=== PATIENT | male | born 1935 | race Caucasian/White ===

== ENCOUNTER → 2016-06-11 | Outpatient (CLI) | payer MEDICARE, OTHER | LOC: RAD 08:42 | PROVIDERS: ATTEND Internal Medicine Medical Oncology | DX: C61 Malignant neoplasm of prostate (principal) | CPT/HCPCS: 78306; A9503; Q9969 ==

== ENCOUNTER → 2016-06-14 | Outpatient (CLI) | payer MEDICARE, OTHER | LOC: RAD 10:06 | PROVIDERS: ATTEND Internal Medicine Medical Oncology | DX: C61 Malignant neoplasm of prostate (principal) | CPT/HCPCS: 72193; 82565 ==

== ENCOUNTER → 2016-07-03 | Outpatient (CLI) | payer MEDICARE, OTHER ==
[2016-07-03 08:25] LABS: ABSOLUTE BASOPHILS # (AUTO) 0.1 10^3/uL (0.0-0.2); ABSOLUTE EOSINOPHILS # (AUTO) 0.1 10^3/uL (0.0-0.6); ABSOLUTE LYMPHOCYTES (AUTO) 0.6 10^3/uL (0.5-4.7); ABSOLUTE MONOCYTES (AUTO) 0.6 10^3/uL (0.1-1.4); ABSOLUTE NEUT (AUTO) 3.6 10^3/uL (1.7-8.2); BASOPHILS % (AUTO) 1.1 % (0-2); EOSINOPHILS % (AUTO) 1.4 % (0-6); HEMATOCRIT 36.5 % (37.9-51.0); HEMOGLOBIN 11.9 g/dL (13.5-17.0); HGB HCT DIFFERENCE -0.8; LYMPHOCYTES % (AUTO) 11.4 % (13-45); MEAN CORPUSCULAR HEMOGLOBIN 30.4 pg (27.0-33.4); MEAN CORPUSCULAR HGB CONC 32.6 g/dL (32.0-36.0); MEAN CORPUSCULAR VOLUME 93 fl (80-97); MONOCYTES % (AUTO) 12.8 % (3-13); RED CELL DISTRIBUTION WIDTH 14.5 % (11.5-14.0); SEGMENTED NEUTROPHILS % (AUTO) 73.3 % (42-78); WHITE BLOOD COUNT 4.9 10^3/uL (4.0-10.5)
[2016-07-03 08:52] LABS: ALANINE AMINOTRANSFERASE 27 U/L (21-72); ALBUMIN 3.2 g/dL (3.5-5.0); ALKALINE PHOSPHATASE 259 U/L (38-126); ANION GAP 9 (5-19); ASPARTATE AMINO TRANSFERASE 25 U/L (17-59); BILIRUBIN,TOTAL 0.8 mg/dL (0.2-1.3); BLOOD UREA NITROGEN 12 mg/dL (7-20); CALCIUM 8.2 mg/dL (8.4-10.2); CARBON DIOXIDE 25 mmol/L (22-30); CHLORIDE 101 mmol/L (98-107); CHOLESTEROL 166.75 mg/dL (0-200); CREATININE RESULT 1.21 mg/dL (0.52-1.25); Direct HDL 63 mg/dL (>40); GLUCOSE 101 mg/dL (75-110); POTASSIUM 4.7 mmol/L (3.6-5.0); SODIUM 135.2 mmol/L (137-145); TRIGLYCERIDES 162 mg/dL (<150)
[2016-07-03 09:03] LABS: DIRECT LDL 69 mg/dL (<100)
[2016-07-03 09:07] LABS: VLDL CHOLESTEROL 32.4 mg/dL (10-31)
== END ==
LOC: OD 07:42
PROVIDERS: ATTEND Internal Medicine
DX: R53.83 Other fatigue (principal); N18.9 Chronic kidney disease, unspecified; E78.5 Hyperlipidemia, unspecified; M10.9 Gout, unspecified; I25.10 Atherosclerotic heart disease of native coronary artery without angina pectoris
CPT/HCPCS: 36415; 80053; 80061; 84443; 84550; 85025

== ENCOUNTER 2016-07-16 01:10 | Emergency (ER) | payer MEDICARE, OTHER ==
[2016-07-16] MEDS ORDERED: NORMAL SALINE 1000 ML 1,000 ML IV ONE (01:36)
[2016-07-16] MEDS ORDERED: ONDANSETRON HCL INJ/PF 4 MG/2 ML SDV IV ONE (01:36)
--- NOTE | 2016-07-16 01:38 | ER Document Report ---
ED General - General Chief Complaint: General Weakness Stated Complaint: WEAKNESS Time seen by provider: 01:30 Notes: Patient is an 80-year-old male with a history of prostate cancer with bony metastasis that comes emergency department for chief complaint of weakness, nausea, vomiting, diarrhea. He denies any fever, headache, shortness of breath , chest pain, he denies any specific abdominal pain. Patient states that one week ago he was started on a new oral chemotherapy since that time he has had no appetite and increased vomiting and diarrhea. Patient also states that he was started on ampicillin for urinary tract infection almost 1 week ago. Patient denies any other significant medical history including diabetes, heart disease. TRAVEL OUTSIDE OF THE [place] IN LAST 30 DAYS: No - Related Data Allergies/Adverse Reactions: metformin Allergy (Verified 07/16/16 01:12) Diarrhea Past Medical History - General Information source: Patient, Relative - Social History Smoking Status: Former Smoker Frequency of alcohol use: None Drug Abuse: None Lives with: Family Family History: Reviewed & Not Pertinent Patient has suicidal ideation: No Patient has homicidal ideation: No - Past Medical History Cardiac Medical History: Reports: Hx Hypertension Denies: Hx Atrial Fibrillation, Hx Congestive Heart Failure, Hx Coronary Artery Disease, Hx Heart Attack - hx of chest pain x1, 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 Sterling, Hx Hypercholesterolemia, Hx Peripheral Vascular Disease, Hx Pulmonary Embolism, Hx Heart Murmur Pulmonary Medical History: Reports: Hx Asthma, Hx COPD Denies: Hx Bronchitis, Hx Pneumonia, Hx Respiratory Failure, Hx Sleep Apnea, Hx Tuberculosis Neurological Medical History: Denies: Hx Cerebrovascular Accident, Hx Seizures Endocrine Medical History: Denies: Hx Graves' Disease, Hx Hyperthyroidism, Hx Hypothyroidism Renal/ Medical History: Denies: Hx Benign Prostatic Hyperplasia - hx Prostate cancer, Hx End Stage Renal Disease, Hx Kidney Stones, Hx Peritoneal Dialysis Malignancy Medical History: Denies Hx Lung Cancer, Reports Hx Prostate Cancer GI Medical History: Reports: Hx Gastroesophageal Reflux Disease. Denies: Hx Crohn's Disease, Hx Hepatitis, Hx Hiatal Hernia, Hx Irritable Bowel, Hx Liver Failure, Hx Ulcer Musculoskeltal Medical History: Reports Hx Arthritis, Denies Hx Fibromyalgia, Denies Hx Muscular Dystrophy Psychiatric Medical History: Traumatic Medical History: Reports: Hx Fractures - presently pelvic fracture Infectious Medical History: Denies: Hx Hepatitis Past Surgical History: Reports: Hx Cholecystectomy, Hx Orthopedic Surgery. Denies: Hx Appendectomy, Hx Bowel Surgery, Hx Colostomy, Hx Coronary Artery Bypass Graft, Hx Gastric Bypass Surgery, Hx Herniorrhaphy, Hx Open Heart Surgery , Hx Pacemaker, Hx Tonsillectomy - Immunizations Hx Diphtheria, Pertussis, Tetanus Vaccination: Yes Review of Systems - Review of Systems Constitutional: See HPI EENT: No symptoms reported Cardiovascular: No symptoms reported Respiratory: No symptoms reported Gastrointestinal: See HPI Genitourinary: See HPI Male Genitourinary: No symptoms reported Musculoskeletal: No symptoms reported Skin: No symptoms reported Hematologic/Lymphatic: No symptoms reported Neurological/Psychological: No symptoms reported Physical Exam - Vital signs Vitals: Pulse Resp BP Pulse Ox 81 16 112/55 L 97 07/16/16 01:17 07/16/16 01:17 07/16/16 01:17 07/16/16 01:17 Interpretation: Normal - General General appearance: Other - Patient resting quietly on the bed, appears slightly tired but does not appear to be in any distress, alert and answers questions appropriately - HEENT Head: Normocephalic, Atraumatic Eyes: Normal Pupils: PERRL - Respiratory Respiratory status: No respiratory distress Chest status: Nontender Breath sounds: Normal. No: Decreased air movement, Wheezing Chest palpation: Normal - Cardiovascular Rhythm: Regular. No: Tachycardia Heart sounds: Normal auscultation, S1 appreciated, S2 appreciated Murmur: No - Abdominal Inspection: Normal Distension: No distension Bowel sounds: Normal Tenderness: Nontender. No: Tender, Guarding Organomegaly: No organomegaly - Back Back: Normal, Nontender. No: Tender - Extremities General upper extremity: Normal inspection, Nontender, Normal color, Normal ROM , Normal temperature General lower extremity: Normal inspection, Nontender, Normal color, Normal ROM , Normal temperature, Normal weight bearing. No: Jesus Alberto's sign - Neurological Neuro grossly intact: Yes Cognition: Normal Orientation: AAOx4 [place] Coma Scale Eye Opening: Spontaneous [place] Coma Scale Verbal: Oriented [place] Coma Scale Motor: Obeys Commands [place] Coma Scale Total: 15 Speech: Normal Motor strength normal: LUE, RUE, LLE, RLE Sensory: Normal - Psychological Associated symptoms: Normal affect, Normal mood - Skin Skin Temperature: Warm Skin Moisture: Dry Skin Color: Normal Course - Re-evaluation Re-evalutation: Unremarkable physical exam, patient not tachycardic, not febrile, not hypotensive. After Zofran patient tolerated PO without difficulty. Mild hyponatremia, patient given IV fluids, patient is not neutropenic, patient is on oral chemotherapy. Chemistry and CBC generally unremarkable otherwise. Urinalysis shows moderate leukocyte esterase and white blood cells, no nitrites , no bacteria, suspect this could be patient's baseline urinalysis, reviewed culture from a few days ago and this shows susceptibility to ampicillin, patient given a dose of Rocephin. Discussed patient with Dr. Sinclair, agrees with IV fluids and Rocephin, recommends patient be discharged with Zofran to call his oncologist today to report the difficulties he is having with his current chemotherapy regimen, with return precautions for patient to return to the emergency department. Patient states satisfaction with plan, states he is ready to leave, family members state agreement, patient states he'll return for fever, uncontrolled vomiting, or any other concerning symptoms. New urine culture pending. - Vital Signs Vital signs: Temp Pulse Resp BP Pulse Ox 98.4 F 81 21 H 130/75 H 94 07/16/16 04:32 07/16/16 01:17 07/16/16 04:01 07/16/16 04:00 07/16/16 04:01 - Laboratory Result Diagrams: 07/16/16 02:05 07/16/16 02:05 Laboratory results interpreted by me: 07/16/16 07/16/16 07/16/16 02:05 02:05 02:28 RBC 3.83 L Hgb 11.7 L Hct 35.3 L RDW 14.2 H Monocytes % 13.4 H Sodium 136.8 L Glucose 111 H Calcium 7.5 L Alkaline Phosphatase 266 H Total Protein 5.4 L Albumin 3.3 L Urine Protein 100 H Ur Leukocyte Esterase MODERATE H Discharge - Discharge Clinical Impression: Weakness Nausea & vomiting Qualifiers: Vomiting type: unspecified Vomiting Intractability: non-intractable Qualified Code(s): R11.2 - Nausea with vomiting, unspecified Condition: Stable Disposition: HOME, SELF-CARE Additional Instructions: Take Zofran as prescribed for nausea/vomiting. Call your oncologist today to discuss side effects of new chemotherapy and additional management. Return to the emergency department for any concerning or worsening symptoms including uncontrollable vomiting, fever, or any other concerning symptoms. Prescriptions: Ondansetron [Zofran Odt 4 mg Tablet] 1 - 2 tab PO Q4H PRN #20 tab.rapdis PRN Reason: For Nausea/Vomiting Referrals: TOMASA THIBODEAUX MD [Primary Care Provider] - Follow up as needed
[2016-07-16 02:29] LABS: ABSOLUTE BASOPHILS # (AUTO) 0.1 10^3/uL (0.0-0.2); ABSOLUTE EOSINOPHILS # (AUTO) 0.1 10^3/uL (0.0-0.6); ABSOLUTE LYMPHOCYTES (AUTO) 0.9 10^3/uL (0.5-4.7); ABSOLUTE MONOCYTES (AUTO) 0.7 10^3/uL (0.1-1.4); ABSOLUTE NEUT (AUTO) 3.3 10^3/uL (1.7-8.2); BASOPHILS % (AUTO) 1.2 % (0-2); EOSINOPHILS % (AUTO) 2.2 % (0-6); HEMATOCRIT 35.3 % (37.9-51.0); HEMOGLOBIN 11.7 g/dL (13.5-17.0); HGB HCT DIFFERENCE -0.2; LYMPHOCYTES % (AUTO) 17.7 % (13-45); MEAN CORPUSCULAR HEMOGLOBIN 30.5 pg (27.0-33.4); MEAN CORPUSCULAR HGB CONC 33.1 g/dL (32.0-36.0); MEAN CORPUSCULAR VOLUME 92 fl (80-97); MONOCYTES % (AUTO) 13.4 % (3-13); RED BLOOD COUNT 3.83 10^6/uL (4.35-5.55); RED CELL DISTRIBUTION WIDTH 14.2 % (11.5-14.0); SEGMENTED NEUTROPHILS % (AUTO) 65.5 % (42-78)
[2016-07-16 02:39] LABS: ALANINE AMINOTRANSFERASE 28 U/L (21-72); ALBUMIN 3.3 g/dL (3.5-5.0); ALKALINE PHOSPHATASE 266 U/L (38-126); ANION GAP 12 (5-19); ASPARTATE AMINO TRANSFERASE 30 U/L (17-59); BILIRUBIN,TOTAL 0.5 mg/dL (0.2-1.3); BLOOD UREA NITROGEN 9 mg/dL (7-20); CALCIUM 7.5 mg/dL (8.4-10.2); CARBON DIOXIDE 23 mmol/L (22-30); CHLORIDE 102 mmol/L (98-107); CREATININE RESULT 1.05 mg/dL (0.52-1.25); GLUCOSE 111 mg/dL (75-110); POTASSIUM 3.8 mmol/L (3.6-5.0); SODIUM 136.8 mmol/L (137-145); TOTAL PROTEIN 5.4 g/dL (6.3-8.2)
[2016-07-16 02:55] LABS: APPEARANCE,URINE SLIGHTLY-CLOUDY; BILIRUBIN,URINE NEGATIVE (NEGATIVE); GLUCOSE, URINE NEGATIVE (NEGATIVE); KETONES,URINE NEGATIVE (NEGATIVE); LEUKOCYTE ESTERASE,URINE MODERATE (NEGATIVE); NITRITE,URINE NEGATIVE (NEGATIVE); PROTEIN,URINE 100 mg/dL (NEGATIVE); URINE SPECIFIC GRAVITY 1.012; UROBILINOGEN,URINE NEGATIVE mg/dL (<2.0)
[2016-07-16] MEDS ORDERED: CEFTRIAXONE 1 GM/D5W RTU 50 ML IV ONE (02:58)
[2016-07-16] MEDS ORDERED: ONDANSETRON ODT 4 MG TAB (6 TAB/DSPK) PO PRN (04:03)
[2016-07-16 04:32] VITALS: BP 130/75
== END 2016-07-16 04:54 | disposition home or self-care (01) ==
LOC: ER 01:10
DX: R53.1 Weakness (principal); R11.2 Nausea with vomiting, unspecified; R19.7 Diarrhea, unspecified; Z87.891 Personal history of nicotine dependence
CPT/HCPCS: 99284; 96361; 96375; 96365; 36415; 87086; 85025; 87088; 80053; 81001; 87186; J2405; J7030; J0696; A9270

== ENCOUNTER → 2016-09-17 | Outpatient (CLI) | payer MEDICARE, OTHER ==
[2016-09-17 12:12] LABS: HEMATOCRIT 31.7 % (37.9-51.0); HEMOGLOBIN 10.6 g/dL (13.5-17.0); HGB HCT DIFFERENCE 0.1; MEAN CORPUSCULAR HEMOGLOBIN 29.8 pg (27.0-33.4); MEAN CORPUSCULAR HGB CONC 33.3 g/dL (32.0-36.0); MEAN CORPUSCULAR VOLUME 90 fl (80-97); RED BLOOD COUNT 3.54 10^6/uL (4.35-5.55); RED CELL DISTRIBUTION WIDTH 14.5 % (11.5-14.0); WHITE BLOOD COUNT 5.5 10^3/uL (4.0-10.5)
[2016-09-17 12:23] LABS: APPEARANCE,URINE CLEAR; BILIRUBIN,URINE NEGATIVE (NEGATIVE); GLUCOSE, URINE NEGATIVE (NEGATIVE); KETONES,URINE NEGATIVE (NEGATIVE); LEUKOCYTE ESTERASE,URINE MODERATE (NEGATIVE); NITRITE,URINE NEGATIVE (NEGATIVE); PROTEIN,URINE NEGATIVE (NEGATIVE); URINE SPECIFIC GRAVITY 1.006; UROBILINOGEN,URINE NEGATIVE mg/dL (<2.0)
[2016-09-17 12:37] LABS: ANION GAP 13 (5-19); BLOOD UREA NITROGEN 22 mg/dL (7-20); CALCIUM 9.2 mg/dL (8.4-10.2); CARBON DIOXIDE 23 mmol/L (22-30); CHLORIDE 105 mmol/L (98-107); CREATININE RESULT 0.99 mg/dL (0.52-1.25); GLUCOSE 115 mg/dL (75-110); POTASSIUM 5.1 mmol/L (3.6-5.0); SODIUM 141.2 mmol/L (137-145)
== END ==
LOC: OD 10:58
PROVIDERS: ATTEND Internal Medicine Nephrology
DX: I12.9 Hypertensive chronic kidney disease with stage 1 through stage 4 chronic kidney disease, or unspecified chronic kidney disease (principal); N18.2 Chronic kidney disease, stage 2 (mild); M10.00 Idiopathic gout, unspecified site
CPT/HCPCS: 36415; 80048; 81001; 85027

== ENCOUNTER 2016-09-28 10:49 | Emergency (ER) | payer MEDICARE, OTHER ==
--- NOTE | 2016-09-28 11:43 | ER Document Report ---
ED Neck/Back Problem - General Chief Complaint: Back Pain Stated Complaint: BACK PAIN Time Seen by Provider: 09/28/16 11:25 Notes: Patient complaining of pain in the lumbar back region which came on suddenly about 1 AM this morning. Patient says is very severe and hurts to move or stand up. Patient has a history of prostate cancer, discovered in 1996 and had a radical prostatectomy. 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 The cancer returned in 2014 in his pelvis and he had radiation treatments for 10 days. The cancer returned this past June, as "tumors" in his lower back, 3 months ago, and is currently being treated with an oral chemotherapy agent. Patient says the pain is present if he moves, stands up,, but is stable if he doesn't move. He's applied ice and took a couple of hydrocodone's about 1 AM and again at 6 AM and says that that has controlled the pain. He denies any abdominal pains, no chest pains. No anterior body pain at all. No history of kidney stones or kidney infections. Denies shortness of breath or difficulty breathing. Has not had any fevers. PMH: Cholecystectomy. Colon perforation during colonoscopy requiring surgery, right total hip replacement area hypertension. Gout. TRAVEL OUTSIDE OF THE [place] IN LAST 30 DAYS: No - Related Data Allergies/Adverse Reactions: metformin Allergy (Verified 07/16/16 01:12) Diarrhea Past Medical History - Social History Smoking Status: Unknown if Ever Smoked Cigarette use (# per day): No Family History: Reviewed & Not Pertinent Patient has suicidal ideation: No Patient has homicidal ideation: No - Past Medical History Cardiac Medical History: Reports: Hx Hypertension Pulmonary Medical History: Reports: Hx Asthma, Hx COPD Renal/ Medical History: Reports: Other - Cancer of the prostatesee history of present illness.. Denies: Hx Kidney Stones Malignancy Medical History: Reports Hx Prostate Cancer GI Medical History: Reports: Hx Gastroesophageal Reflux Disease Musculoskeltal Medical History: Reports Hx Arthritis Psychiatric Medical History: Traumatic Medical History: Reports: Hx Fractures - presently pelvic fracture Infectious Medical History: Denies: Hx Hepatitis Past Surgical History: Reports: Hx Cholecystectomy, Hx Orthopedic Surgery, Other - Radical prostatectomy - Immunizations Hx Diphtheria, Pertussis, Tetanus Vaccination: Yes Review of Systems - Review of Systems Notes: REVIEW OF SYSTEMS: CONSTITUTIONAL : Denies fever. EENT: Denies eye, ear, nose or mouth or throat pain or other symptoms. CARDIOVASCULAR: Denies chest pain. RESPIRATORY: Denies cough, chest congestion, or shortness of breath. GASTROINTESTINAL: Denies abdominal pain or nausea, vomiting, or diarrhea. GENITOURINARY: Denies difficulty or painful urinating, urinary frequency, blood in urine. MUSCULOSKELETAL: Denies upper back or neck pain. Denies joint pain or swelling. SKIN: Denies rash or skin lesions. NEUROLOGICAL: Denies LOC or altered mental status. Denies headache. Denies sensory loss or motor deficits. ALL OTHER SYSTEMS REVIEWED AND NEGATIVE. Physical Exam - Vital signs Vitals: Pulse Resp BP Pulse Ox 74 20 73/41 L 97 09/28/16 11:02 09/28/16 11:02 09/28/16 11:02 09/28/16 11:02 Interpretation: Hypotensive - Patient's blood pressure was 73/41 in triage, but he's had 3 readings since he was put in his room in bed that are all normal, one at this time when I'm examining the patient is 152/79 with a heart rate of 71. Patient says he has run somewhat low blood pressure since he's been on the oral chemotherapy agent is taking now. - Notes Notes: PHYSICAL EXAMINATION: GENERAL: Well-appearing, in no acute distress. Patient is comfortable laying on the stretcher. Vital signs were normal with the exception of the blood pressure which I mention under review of systems. HEAD: Atraumatic, normocephalic. NECK: Normal range of motion, supple. LUNGS: Breath sounds clear and equal bilaterally. HEART: Regular rate and rhythm without murmurs. ABDOMEN: Soft, nontender. No guarding or rebound. BACK: Tender to palpate in the mid lumbar back region. Also pain there when he twists or turns in bed. EXTREMITIES: Normal range of motion without pain. NEUROLOGICAL: Normal speech, normal gait. Normal sensory, motor, and reflex exams. Awake, alert, and oriented x3. Cranial nerves normal. SKIN: Warm, dry, no rashes. Course - Re-evaluation Re-evalutation: 09/28/16 11:48 Offered pain medication, but the patient declined. He says he is okay as long as he doesn't try to move or sit up or stand. 09/28/16 13:40 Discussed findings plus are with Malrene, patient's oncologist nurse, Dr. Ladd, who is familiar with the patient. Made her aware of the findings of a possible UTI, and multiple bone metastases. The extension supervisor oncologist for this patient's doctor wants to be sure we don't have any compression fractures of the vertebrae involved cancer son going to do a CT scan of the lumbar spine. 09/28/16 13:56 Urine is being cultured and the patient will be started on antibiotics when discharged. He says he occasionally gets UTIs, and was treated for one about a month ago. 09/28/16 15:07 Spoke with Marlene, at Dr. Ladd's office, and I will treat the UTI, switch the patient to Percocet because he says that's a better pain medicine than the hydrocodone for him, and they will see him at noon on Saturday. - Vital Signs Vital signs: Temp Pulse Resp BP Pulse Ox 97.5 F 74 19 152/79 H 98 09/28/16 11:04 09/28/16 11:02 09/28/16 11:34 09/28/16 11:34 09/28/16 11:34 - Laboratory Result Diagrams: 09/28/16 12:15 09/28/16 12:15 Laboratory results interpreted by me: 09/28/16 09/28/16 09/28/16 12:15 12:15 12:15 RBC 3.50 L Hgb 10.5 L Hct 31.5 L RDW 14.9 H Seg Neutrophils % 82.6 H Lymphocytes % 7.3 L Sodium 136.7 L Carbon Dioxide 21 L BUN 21 H Glucose 113 H AST 67 H Alkaline Phosphatase 435 H Urine Protein 30 H Ur Leukocyte Esterase LARGE H - Diagnostic Test Radiology reviewed: Image reviewed, Reports reviewed - X-ray of the lumbar spine reveals dense sclerosis of the L2 vertebral body and portions of the L3 vertebral body. Additionally, patient has sclerosis of the right sacrum and the adjacent iliac bone. Discharge - Discharge Clinical Impression: Prostate cancer metastatic to bone UTI (urinary tract infection) Qualifiers: Urinary tract infection type: site unspecified Hematuria presence: without hematuria Qualified Code(s): N39.0 - Urinary tract infection, site not specified Condition: Stable Disposition: HOME, SELF-CARE Additional Instructions: LOW BACK PAIN: Three out of every four people will have an episode of disabling back pain during their lifetime. Most commonly the pain is due to straining of the muscles and ligaments in the low back. Usual treatment includes: (1) Rest on a firm surface. Avoid lying on your stomach. (2) Ice pack the painful area. After a few days, gentle heat may be used intermittently to relax the area, or ice packs can be continued. (3) Medication may be needed -- muscle relaxers and antiinflammatory medicines are commonly used. (4) As the back improves, exercises are prescribed to strengthen the back and abdominal muscles. Your doctor will advise you on the proper care for your back at each stage in your recovery. You may be better in a few days -- or healing may take several weeks. If new symptoms of a "herniated disc" (radiation of pain, numbness, or tingling down the back of the leg or weakness in the leg) occur, you should be re-examined. Further testing may be necessary. ORAL NARCOTIC MEDICATION: You have been given a prescription for pain control. This medication is a narcotic. It's best taken with food, as nausea can result if taken on an empty stomach. Don't operate machinery or drive within six hours of taking this medication. Do not combine this medicine with alcohol, or with any medication which can cause sedation (such as cold tablets or sleeping pills) unless you get permission from the physician. Narcotics tend to cause constipation. If possible, drink plenty of fluids and eat a diet high in fiber and fruits. Please be aware that prescription narcotics also have the potential for abuse. People become addicted to these medications because of the general sense of wellbeing that they induce. This feeling along with a significant reduction in tension, anxiety, and aggression provides a stimulating seductive quality to these drugs. Once your pain is under control, we encourage you to discard your unused narcotics. Antinausea Medication You have been given a medication to suppress nausea and vomiting. This type of medication can be given as a shot, pill, or suppository. It will usually last for many hours. Pills and shots usually last six to eight hours, suppositories last about 12 hours. For the typical illness, only one or two doses of the medication may be necessary. Mild lightheadedness may occur. This type of medicine can cause drowsiness. Do not drive or operate dangerous machinery while under its influence. Do not mix with alcohol. See your doctor at once if you have muscle spasms or tightness, or uncontrollable motions (particularly of the neck, mouth, or jaw). Persistent vomiting or severe lightheadedness should also be evaluated by the physician. ICE PACKS: Apply ice packs frequently against the painful area. Many different schedules are recommended, such as "20 minutes on, 20 minutes off" or "one hour ice, two hours rest." If you need to work, you may need to go longer between ice treatments. You should plan to have the area ice packed AT LEAST one fourth of the time. The ice should be applied over the wrap, tape, or splint, or over a layer of cloth -- not directly against the skin. Some ice bags have a built-in cloth and can be put directly on the skin. URINARY TRACT INFECTION: Your evaluation indicates that you have a urinary tract infection. This is due to germs growing in the bladder. This is a common problem. This infection usually responds quickly to antibiotics. Your antibiotic should be taken exactly as prescribed. Drink plenty of fluids -- three to four quarts a day. Occasionally, a bladder anesthetic will be prescribed to help stop the feeling of urgency until the antibiotic has a chance to clear the infection. This may cause your urine to be dark orange. Certain urine infections require a culture. If the doctor obtained a culture, the results will be back in two days. You should call to see if a change in treatment is needed. A repeat urinalysis after you finish treatment is often recommended. The physician will let you know if further testing is required. Call the doctor if you develop fever, chills, flank pain, inability to urinate, or blood in the urine. ANTIBIOTIC THERAPY: You have been given an antibiotic prescription. It's important that you take all the medication, unless instructed otherwise by your physician. Failure to complete the entire course can result in relapse of your condition. Common side effects of antibiotics include nausea, intestinal cramping, or diarrhea. Women may develop vaginal yeast infections, and babies can get yeast (thrush) in the mouth following the use of antibiotics. Contact your physician if you develop significant side effects from this medication. Allergy to this antibiotic can result in hives, wheezing, faintness, or itching. If symptoms of allergy occur, stop the medication and call the doctor. NITROFURANTOIN (MACRODANTIN, MACROBID): You have received a prescription for nitrofurantoin (Macrodantin). This antibiotic is used for urinary tract infections. Women who are or nursing should notify the physician before taking this medicine. If you have ever had a problem caused by this medication in the past, be sure the physician is aware of it. Common side effects of this medicine include nausea, vomiting, or decreased appetite. Notify your physician if these side effects become severe. Immediately stop this medicine and call the physician if you develop cough , shortness of breath, chest pain, weakness, jaundice (yellow color of the skin and whites of the eyes), or a skin rash. FOLLOW-UP CARE: If you have been referred to a physician for follow-up care, call the physician s office for an appointment as you were instructed or within the next two days. If you experience worsening or a significant change in your symptoms, notify the physician immediately or return to the Emergency Department at any time for re-evaluation. Go to Dr. Ladd's office at noon on Saturday. Return at any time if your symptoms worsen or you develop new symptoms such as high fevers, etc. or if you lose control of your neurologic functions in the lower extremities or bladder or bowels. Prescriptions: Oxycodone HCl/Acetaminophen [Percocet 5-325 mg Tablet] 1 - 2 tab PO Q4HP PRN # 30 tablet PRN Reason: Promethazine HCl [Phenergan 25 mg Tablet] 1 - 2 tab PO Q6HP PRN #20 tablet PRN Reason: Nitrofurantoin/Nitrofuran Mac [Macrobid 100 mg Capsule] 1 tab PO BID #14 capsule
[2016-09-28 12:35] LABS: ABSOLUTE EOSINOPHILS # (AUTO) 0.1 10^3/uL (0.0-0.6); ABSOLUTE LYMPHOCYTES (AUTO) 0.5 10^3/uL (0.5-4.7); ABSOLUTE MONOCYTES (AUTO) 0.6 10^3/uL (0.1-1.4); ABSOLUTE NEUT (AUTO) 6.2 10^3/uL (1.7-8.2); BASOPHILS % (AUTO) 0.4 % (0-2); EOSINOPHILS % (AUTO) 1.4 % (0-6); HEMATOCRIT 31.5 % (37.9-51.0); HEMOGLOBIN 10.5 g/dL (13.5-17.0); LYMPHOCYTES % (AUTO) 7.3 % (13-45); MEAN CORPUSCULAR HEMOGLOBIN 30.2 pg (27.0-33.4); MEAN CORPUSCULAR HGB CONC 33.5 g/dL (32.0-36.0); MEAN CORPUSCULAR VOLUME 90 fl (80-97); MONOCYTES % (AUTO) 8.3 % (3-13); RED CELL DISTRIBUTION WIDTH 14.9 % (11.5-14.0); SEGMENTED NEUTROPHILS % (AUTO) 82.6 % (42-78); WHITE BLOOD COUNT 7.5 10^3/uL (4.0-10.5)
[2016-09-28 12:43] LABS: APPEARANCE,URINE CLOUDY; BILIRUBIN,URINE NEGATIVE (NEGATIVE); GLUCOSE, URINE NEGATIVE (NEGATIVE); KETONES,URINE NEGATIVE (NEGATIVE); LEUKOCYTE ESTERASE,URINE LARGE (NEGATIVE); NITRITE,URINE NEGATIVE (NEGATIVE); PROTEIN,URINE 30 mg/dL (NEGATIVE); URINE SPECIFIC GRAVITY 1.018; UROBILINOGEN,URINE NEGATIVE mg/dL (<2.0)
[2016-09-28 12:49] LABS: ALANINE AMINOTRANSFERASE 37 U/L (21-72); ALBUMIN 3.7 g/dL (3.5-5.0); ALKALINE PHOSPHATASE 435 U/L (38-126); ANION GAP 12 (5-19); ASPARTATE AMINO TRANSFERASE 67 U/L (17-59); BILIRUBIN,DIRECT 0.4 mg/dL (0.0-0.4); BILIRUBIN,TOTAL 0.7 mg/dL (0.2-1.3); BLOOD UREA NITROGEN 21 mg/dL (7-20); CALCIUM 8.4 mg/dL (8.4-10.2); CARBON DIOXIDE 21 mmol/L (22-30); CHLORIDE 104 mmol/L (98-107); CREATININE RESULT 0.95 mg/dL (0.52-1.25); GLUCOSE 113 mg/dL (75-110); POTASSIUM 4.4 mmol/L (3.6-5.0); SODIUM 136.7 mmol/L (137-145); TOTAL PROTEIN 6.3 g/dL (6.3-8.2)
[2016-09-28] MEDS ORDERED: NITROFURANTOIN MONOHYD/M-CRYST 100 MG CAPSULE PO ONE (15:06)
[2016-09-28] MEDS ORDERED: PROMETHAZINE HCL 25 MG TABLET PO ONE (15:07)
[2016-09-28] MEDS ORDERED: OXYCODONE-ACETAMINOPHEN 5-325 MG TABLET PO ONE (15:07)
[2016-09-28 15:29] VITALS: BP 137/68
== END 2016-09-28 15:35 | disposition home or self-care (01) ==
LOC: ER 10:49
DX: C79.51 Secondary malignant neoplasm of bone (principal); N39.0 Urinary tract infection, site not specified; M54.5 Low back pain; I10 Essential (primary) hypertension; J44.9 Chronic obstructive pulmonary disease, unspecified; Z85.46 Personal history of malignant neoplasm of prostate; Z85.51 Personal history of malignant neoplasm of bladder; Z85.53 Personal history of malignant neoplasm of renal pelvis; Z92.21 Personal history of antineoplastic chemotherapy; Z79.899 Other long term (current) drug therapy
CPT/HCPCS: 99284; 36415; 87086; 85025; 87088; 80053; 81001; 87186; 72110; 72131; A9270 ×3; J8499

== ENCOUNTER → 2017-01-23 | Outpatient (CLI) | payer MEDICARE, OTHER ==
[2017-01-23 08:11] LABS: HEMATOCRIT 29.2 % (37.9-51.0); HEMOGLOBIN 9.1 g/dL (13.5-17.0); HGB HCT DIFFERENCE -1.9; MEAN CORPUSCULAR HEMOGLOBIN 27.5 pg (27.0-33.4); MEAN CORPUSCULAR HGB CONC 31.2 g/dL (32.0-36.0); MEAN CORPUSCULAR VOLUME 88 fl (80-97); RED BLOOD COUNT 3.31 10^6/uL (4.35-5.55); RED CELL DISTRIBUTION WIDTH 16.6 % (11.5-14.0); WHITE BLOOD COUNT 24.9 10^3/uL (4.0-10.5)
[2017-01-23 08:47] LABS: ANION GAP 14 (5-19); BLOOD UREA NITROGEN 21 mg/dL (7-20); CALCIUM 8.2 mg/dL (8.4-10.2); CARBON DIOXIDE 24 mmol/L (22-30); CHLORIDE 104 mmol/L (98-107); CREATININE RESULT 1.11 mg/dL (0.52-1.25); GLUCOSE 124 mg/dL (75-110); SODIUM 141.7 mmol/L (137-145)
== END ==
LOC: OD 07:40
PROVIDERS: ATTEND Internal Medicine Nephrology
DX: N18.2 Chronic kidney disease, stage 2 (mild) (principal); I12.9 Hypertensive chronic kidney disease with stage 1 through stage 4 chronic kidney disease, or unspecified chronic kidney disease; M10.00 Idiopathic gout, unspecified site
CPT/HCPCS: 36415; 80048; 85027

== ENCOUNTER → 2017-05-27 | Outpatient (CLI) | payer MEDICARE, OTHER ==
--- NOTE | 2017-05-27 16:13 | RADIOLOGY REPORT (SQ) ---
EXAM DESCRIPTION: CT SOFT TISSUE NECK WITHOUT COMPLETED DATE/TIME: 05/27/2017 1:08 pm REASON FOR STUDY: NECK PAIN (M54.2), PROSTATE CA (C61) M54.2 CERVICALGIA COMPARISON: Whole-body bone scan 06/11/2016 TECHNIQUE: Noncontrast scanning from skull base through lung apices with review of bone, soft tissue and lung windows. Reconstructed coronal and sagittal MPR images reviewed. All images stored on PAC S. All CT scanners at this facility use dose modulation, iterative reconstruction, and/or weight based d osing when appropriate to reduce radiation dose to as low as reasonably achievable (ALARA). [facility]: Dose Right [facility]: CareDose [facility]: Dose Right [facility]: Teradose 4D [facility]: CanaryHop RADIATION DOSE: 22.4 mGy. LIMITATIONS: None. FINDINGS: Very subtle hyperdense soft tissue fills the rightward spinal canal and right neural khadijah en at C4-5, C5-6, worrisome for epidural tumor. This is best shown on axial images 41 through 50, an d sagittal images 53 and 54. Please consider MRI without and with contrast for further evaluation. This is likely extension of tumor from bony metastatic disease into the spinal canal and right-sided C4-5 and C5-6 foramina. SKULL BASE: Limited view of the inferior brain in the field of view unremarkable. There is complete opacification of the sphenoid sinus and left maxillary sinus from inflammatory change. MAJOR SALIVARY GLANDS: No solid or cystic masses. No inflammatory changes. LYMPHADENOPATHY: No adenopathy. MUCOSAL MASSES OR ASYMMETRY: No mucosal masses or asymmetry. LARYNX/CORDS: No abnormal findings. LUNG APICES: Clear. BONES: Diffuse bony metastatic disease. Very heavy burden has disease in the C2, C4, C5 and C6 verte bral bodies. THYROID: Normal size. No masses. PARANASAL SINUSES: Clear. 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 There is asymmetric hyperdense soft tissue in the ri ghtward spinal canal and neural foramina of C4-5 and C5-6 worrisome for bulky epidural tumor TECHNICAL DOCUMENTATION: JOB ID: [id number] Quality ID # [id number]: Final reports with documentation of one or more dose reduction techniques (e.g., Au tomated exposure control, adjustment of the mA and/or kV according to patient size, use of iterative reconstruction technique) 2010 [employer]- All Rights Reserved
== END ==
LOC: RAD 12:39
PROVIDERS: ATTEND Internal Medicine Medical Oncology
DX: M54.2 Cervicalgia (principal); C61 Malignant neoplasm of prostate; C79.51 Secondary malignant neoplasm of bone
CPT/HCPCS: 70490

== ENCOUNTER → 2017-06-12 | Outpatient (CLI) | payer MEDICARE, OTHER ==
--- NOTE | 2017-06-12 11:23 | RADIOLOGY REPORT (SQ) ---
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 CONTRAST TYPE AND DOSE: 15 mL Multihance. RENAL FUNCTION: Estimated GFR 56 LIMITATIONS: None. FINDINGS: There is diffuse bony metastatic disease involving the clivus down to the T4 level, manubr ium sternum, bilateral scapula IA, clavicles, and upper ribs. There is heavy burden of metastatic disease at the C5 and C6 levels. At C5, there is extraosseous ex tent of tumor into the epidural space, ventral to this cervical cord. Epidural tumor extends into th e right and left C5-6 foramina right more so than left. These changes are best shown on axial series 11, images 15-18. Right-sided epidural tumor also extends into the right C4-5 and right C6-7 neural foramina. Cervical spine findings at the disc levels are as follows: Craniocervical junction, C1-2, C2-3 and C3-4 are unremarkable. At C4-5, enhancing epidural tumor fills the right C4-5 neural foramen. There is no bony foraminal st enosis. Mild right facet hypertrophy. No central or left foraminal C4-5 narrowing. At C5-6, broad ventral epidural tumor causes effacement of the CSF around the cervical cord, causes m ild ventral cord flattening without abnormal intrinsic cord signal. Mild central canal stenosis. Th ere is epidural tumor filling the neural foramina right more so than left. No bony right foraminal s tenosis. On the left side, moderate foraminal stenosis from facet and uncovertebral hypertrophy is p resent. At C6-7, mild diffuse posterior disc bulging is present with borderline central canal narrowing and m ild bilateral foraminal stenosis At C7-T1, no central stenosis or posterior disc bulging. Moderate bilateral facet hypertrophy with m ild right foraminal narrowing. No left foraminal narrowing Neck soft tissues in the field of view are unremarkable. No adenopathy. Major salivary glands are u nremarkable. Normal vascular flow voids. No mucosal masses. Limited view of the larynx is unremark able. Incidental finding of fluid in the left maxillary sinus and sphenoid sinuses from sinusitis. IMPRESSION: Diffuse bony involvement. There is extra osseous extension humerus at the C5 level into the epidural space as above. TECHNICAL DOCUMENTATION: JOB ID: [id number] [employer]- All Rights Reserved
== END ==
LOC: RAD 08:18
PROVIDERS: ATTEND Radiology Radiation Oncology
DX: C79.51 Secondary malignant neoplasm of bone (principal); C61 Malignant neoplasm of prostate
CPT/HCPCS: 82565; 70543; A9577

== ENCOUNTER → 2017-09-02 | Outpatient (CLI) | payer MEDICARE, OTHER ==
[2017-09-02 09:43] LABS: HEMATOCRIT 24.5 % (37.9-51.0); MEAN CORPUSCULAR HGB CONC 31.6 g/dL (32.0-36.0); MEAN CORPUSCULAR VOLUME 95 fl (80-97); RED BLOOD COUNT 2.59 10^6/uL (4.35-5.55); RED CELL DISTRIBUTION WIDTH 22.7 % (11.5-14.0)
[2017-09-02 10:06] LABS: ANION GAP 8 (5-19); BLOOD UREA NITROGEN 24 mg/dL (7-20); CALCIUM 9.7 mg/dL (8.4-10.2); CARBON DIOXIDE 27 mmol/L (22-30); CHLORIDE 107 mmol/L (98-107); GLUCOSE 96 mg/dL (75-110); POTASSIUM 5.4 mmol/L (3.6-5.0); SODIUM 142.3 mmol/L (137-145)
[2017-09-02 10:57] LABS: WHITE BLOOD COUNT 16.5 10^3/uL (4.0-10.5)
[2017-09-02 10:58] LABS: HEMOGLOBIN 7.8 g/dL (13.5-17.0); PLATELET COUNT 66 10^3/uL (150-450)
[2017-09-02 11:10] LABS: HEMATOCRIT 24.5 % (37.9-51.0); MEAN CORPUSCULAR HGB CONC 31.6 g/dL (32.0-36.0); MEAN CORPUSCULAR VOLUME 95 fl (80-97); RED BLOOD COUNT 2.59 10^6/uL (4.35-5.55); RED CELL DISTRIBUTION WIDTH 22.7 % (11.5-14.0)
[2017-09-02 11:11] LABS: HEMOGLOBIN 7.8 g/dL (13.5-17.0); PLATELET COUNT 66 10^3/uL (150-450)
[2017-09-02 11:12] LABS: WHITE BLOOD COUNT 16.5 10^3/uL (4.0-10.5)
[2017-09-02 16:43] LABS: AMORPHOUS SEDIMENT,URINE TRACE /HPF; APPEARANCE,URINE CLOUDY; BILIRUBIN,URINE NEGATIVE (NEGATIVE); COLOR,URINE YELLOW; GLUCOSE, URINE NEGATIVE (NEGATIVE); KETONES,URINE NEGATIVE (NEGATIVE); LEUKOCYTE ESTERASE,URINE LARGE (NEGATIVE); NITRITE,URINE NEGATIVE (NEGATIVE); PROTEIN,URINE NEGATIVE (NEGATIVE); URINE SPECIFIC GRAVITY 1.013; UROBILINOGEN,URINE NEGATIVE mg/dL (<2.0)
[2017-09-03 12:26] LABS: PATH REVIEW PATHOLOGIST REVIEWED
== END ==
LOC: OD 08:41
PROVIDERS: ATTEND Registered Nurse Oncology
DX: I12.9 Hypertensive chronic kidney disease with stage 1 through stage 4 chronic kidney disease, or unspecified chronic kidney disease (principal); N18.2 Chronic kidney disease, stage 2 (mild); D64.9 Anemia, unspecified; C79.51 Secondary malignant neoplasm of bone; M10.00 Idiopathic gout, unspecified site
CPT/HCPCS: 36415; 80048; 81001; 85027

== ENCOUNTER 2017-09-18 15:33 | Outpatient (CLI) | payer MEDICARE, OTHER ==
[2017-09-18] MEDS ORDERED: ACETAMINOPHEN 325 MG TABLET PO PRN ×2 (15:58→21:26)
[2017-09-18] MEDS ORDERED: DIPHENHYDRAMINE HCL 50 MG CAPSULE PO PRN (16:00)
[2017-09-18] MEDS ORDERED: FUROSEMIDE INJ/PF 40 MG/4 ML SDV IV PRN (16:02)
[2017-09-18] MEDS ORDERED: NORMAL SALINE 1000 ML 1,000 ML IV PRN (17:25)
[2017-09-18 17:58] LABS: HEMATOCRIT 20.6 % (37.9-51.0); MEAN CORPUSCULAR HEMOGLOBIN 31.7 pg (27.0-33.4); MEAN CORPUSCULAR HGB CONC 34.2 g/dL (32.0-36.0); MEAN CORPUSCULAR VOLUME 93 fl (80-97); PLATELET COUNT 156 10^3/uL (150-450); RED BLOOD COUNT 2.22 10^6/uL (4.35-5.55); RED CELL DISTRIBUTION WIDTH 22.5 % (11.5-14.0); WHITE BLOOD COUNT 7.7 10^3/uL (4.0-10.5)
[2017-09-18] MEDS ORDERED: NORMAL SALINE 500 ML IV ONE (20:30)
[2017-09-19 08:06] LABS: HEMATOCRIT 22.6 % (37.9-51.0); MEAN CORPUSCULAR HEMOGLOBIN 31.5 pg (27.0-33.4); MEAN CORPUSCULAR HGB CONC 34.4 g/dL (32.0-36.0); MEAN CORPUSCULAR VOLUME 91 fl (80-97); PLATELET COUNT 151 10^3/uL (150-450); RED BLOOD COUNT 2.47 10^6/uL (4.35-5.55); RED CELL DISTRIBUTION WIDTH 20.6 % (11.5-14.0); WHITE BLOOD COUNT 7.6 10^3/uL (4.0-10.5)
[2017-09-19 08:11] LABS: HEMOGLOBIN 7.8 g/dL (13.5-17.0)
[2017-09-19] MEDS ORDERED: ONDANSETRON 4 MG TAB.RAPDIS PO PRN (08:18)
[2017-09-19 08:35] LABS: ABSOLUTE LYMPHOCYTES# (MANUAL) 0.4 10^3/uL (0.5-4.7); ABSOLUTE MONOCYTES # (MANUAL) 0.4 10^3/uL (0.1-1.4); ABSOLUTE NEUTROPHILS# (MANUAL) 6.8 10^3/uL (1.7-8.2); BAND NEUTROPHILS % (MANUAL) 7 % (3-5); BASOPHILS % (MANUAL) 1 % (0-2); EOSINOPHILS % (MANUAL) 0 % (0-6); LYMPHOCYTES % (MANUAL) 5 % (13-45); METAMYELOCYTES % (MANUAL) 1 % (0); MONOCYTES % (MANUAL) 5 % (3-13); OVALOCYTES 1+; PLATELET COMMENT ADEQUATE; POIKILOCYTOSIS 1+; SEGMENTED NEUTROPHILS % (MAN) 81 % (42-78); TOTAL CELLS COUNTED 100; TOXIC GRANULATION SLIGHT
[2017-09-19 08:36] LABS: ANISOCYTOSIS 2+; HYPOCHROMASIA SLIGHT; POLYCHROMASIA SLIGHT; TEAR DROP CELLS SLIGHT
[2017-09-19] MEDS ORDERED: METOPROLOL SUCCINATE 50 MG TAB.SR.24H PO SCH (10:00)
[2017-09-19] MEDS ORDERED: DOXAZOSIN MESYLATE 2 MG TABLET PO SCH (10:00)
[2017-09-19] MEDS ORDERED: FLUTICASONE/SALMETEROL DISKUS 250-50 MCG/DOSE IH SCH (10:00)
[2017-09-19] MEDS ORDERED: ZINC CITRATE PO SCH (10:00)
[2017-09-19] MEDS ORDERED: ALLOPURINOL 300 MG TABLET PO SCH (10:00)
[2017-09-19] MEDS ORDERED: [UNRECOGNIZED DRUG - OTHER] PO SCH (10:00)
[2017-09-19 13:08] VITALS: BP 130/61
[2017-09-19] MEDS ORDERED: ATORVASTATIN CALCIUM 40 MG TABLET PO SCH (22:00)
[2017-09-19] MEDS ORDERED: ATORVASTATIN CALCIUM 20 MG TABLET PO SCH (22:00)
[2017-09-20] MEDS ORDERED: LANSOPRAZOLE 30 MG TAB.RAP.DR PO SCH (06:00)
== END 2017-09-19 13:40 | disposition home or self-care (01) ==
LOC: II 15:33 → 5TH 15:45 → 2N 15:45 → II 09-19 13:40
PROVIDERS: ATTEND Internal Medicine
PROC: 30233N1 Transfusion of Nonautologous Red Blood Cells into Peripheral Vein, Percutaneous Approach (ICD-10-PCS; principal; 2017-09-18)
PROC: 30233N1 Transfusion of Nonautologous Red Blood Cells into Peripheral Vein, Percutaneous Approach (ICD-10-PCS; 2017-09-19)
DX: D64.9 Anemia, unspecified (principal); C61 Malignant neoplasm of prostate
CPT/HCPCS: 86900; 86901; 36415; 36430; 86850; 85025; 86920; P9016; A9270 ×6; J3490

== ENCOUNTER 2017-10-11 16:51 | Inpatient (IN) | payer MEDICARE, OTHER ==
[2017-10-11] MEDS ORDERED: NORMAL SALINE 1000 ML 1,000 ML IV ONE (18:07)
[2017-10-11 18:21] LABS: HEMATOCRIT 35.4 % (37.9-51.0); HEMOGLOBIN 11.8 g/dL (13.5-17.0); MEAN CORPUSCULAR HEMOGLOBIN 30.5 pg (27.0-33.4); MEAN CORPUSCULAR HGB CONC 33.3 g/dL (32.0-36.0); MEAN CORPUSCULAR VOLUME 92 fl (80-97); RED BLOOD COUNT 3.86 10^6/uL (4.35-5.55); RED CELL DISTRIBUTION WIDTH 19.4 % (11.5-14.0); WHITE BLOOD COUNT 8.5 10^3/uL (4.0-10.5)
[2017-10-11 18:23] LABS: PLATELET COUNT 70 10^3/uL (150-450)
[2017-10-11 18:30] LABS: ALANINE AMINOTRANSFERASE 27 U/L (21-72); ALKALINE PHOSPHATASE 248 U/L (38-126); ANION GAP 10 (5-19); ASPARTATE AMINO TRANSFERASE 32 U/L (17-59); BILIRUBIN,DIRECT 0.4 mg/dL (0.0-0.4); BILIRUBIN,TOTAL 0.4 mg/dL (0.2-1.3); BLOOD UREA NITROGEN 13 mg/dL (7-20); CALCIUM 7.7 mg/dL (8.4-10.2); CARBON DIOXIDE 23 mmol/L (22-30); CHLORIDE 103 mmol/L (98-107); GLUCOSE 129 mg/dL (75-110); LIPASE 146.5 U/L (23-300); POTASSIUM 4.2 mmol/L (3.6-5.0); SODIUM 136.4 mmol/L (137-145); TOTAL PROTEIN 5.1 g/dL (6.3-8.2)
--- NOTE | 2017-10-11 18:30 | ER Document Report ---
ED General - General Chief Complaint: Weakness Stated Complaint: POSSIBLE DEHYDRATION Time Seen by Provider: 10/11/17 18:07 Notes: Patient has a history of prostate cancer with previous removal of his prostate and on chemotherapy for the past 3 years. He is now on chemotherapy every 3 weeks and his most recent chemotherapy was on 10/02. He feels he is having a reaction to it because he is having significantly decreased appetite, even does not want to drink water. He is nauseated but not vomiting. Is having "uncontrollable bowel movements" since Saturday. Has not seen any blood in the diarrhea. Patient went to [place] on Saturday and was given saline and medications for nausea/vomiting. His medicines include anti-emetics as well as medical marijuana. Patient says that he feels dehydrated, but he is making urine. Is able to keep down a few things in small quantities, such as ice cream. Has not noted any fever. Denies shortness of breath or difficulty breathing. Denies any chest pains. 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 TRAVEL OUTSIDE OF THE [place] IN LAST 30 DAYS: No - Related Data Allergies/Adverse Reactions: metformin Allergy (Verified 10/11/17 16:54) Diarrhea Past Medical History - Social History Smoking Status: Never Smoker Chew tobacco use (# tins/day): No Frequency of alcohol use: None Drug Abuse: None Family History: Reviewed & Not Pertinent Patient has suicidal ideation: No Patient has homicidal ideation: No - Past Medical History Cardiac Medical History: Reports: Hx Hypertension Pulmonary Medical History: Reports: Hx Asthma, Hx COPD Malignancy Medical History: Denies Hx Lung Cancer, Reports Hx Prostate Cancer GI Medical History: Reports: Hx Gastroesophageal Reflux Disease Musculoskeltal Medical History: Reports Hx Arthritis Psychiatric Medical History: Traumatic Medical History: Reports: Hx Fractures - presently pelvic fracture Infectious Medical History: Past Surgical History: Reports: Hx Cholecystectomy, Hx Orthopedic Surgery, Other - Radical prostatectomy - Immunizations Hx Diphtheria, Pertussis, Tetanus Vaccination: Yes Review of Systems - Review of Systems Notes: REVIEW OF SYSTEMS: CONSTITUTIONAL : Denies fever. Generalized weakness, no appetite. EENT: Denies eye, ear, nose or mouth or throat pain or other symptoms. CARDIOVASCULAR: Denies chest pain. RESPIRATORY: Denies cough, chest congestion, or shortness of breath. GASTROINTESTINAL: Denies abdominal pain, vomiting, or diarrhea, but has been nauseated and no appetite. GENITOURINARY: Denies difficulty or painful urinating, urinary frequency, blood in urine. MUSCULOSKELETAL: Denies back or neck pain. Denies joint pain or swelling. SKIN: Denies rash or skin lesions. NEUROLOGICAL: Denies LOC or altered mental status. Denies headache. Denies sensory loss or motor deficits. ALL OTHER SYSTEMS REVIEWED AND NEGATIVE. Physical Exam - Vital signs Vitals: Temp Pulse Resp BP Pulse Ox 98.3 F 124 H 18 111/49 L 97 10/11/17 16:58 10/11/17 16:58 10/11/17 16:58 10/11/17 16:58 10/11/17 16:58 Interpretation: Tachycardic. No: Febrile - Notes Notes: PHYSICAL EXAMINATION: GENERAL: Well-appearing, in no acute distress. Slightly tachycardic, but other vital signs are essentially normal. HEAD: Atraumatic, normocephalic. EYES: Pupils equal round and reactive to light, extraocular movements intact. ENT: oropharynx clear without exudates. Moist mucous membranes. NECK: Normal range of motion, supple. LUNGS: Breath sounds clear and equal bilaterally. Port-A-Cath in the right upper chest HEART: Regular rate and rhythm without murmurs. Heart rate about 110 at the bedside by me. ABDOMEN: Soft, nontender. No guarding or rebound. No masses. BACK: No tenderness throughout entire back. EXTREMITIES: Normal range of motion without pain. NEUROLOGICAL: Normal speech, normal gait. Normal sensory, motor, and reflex exams. Awake, alert, and oriented x3. PSYCH: Normal mood, normal affect. Seems to be somewhat depressed. Anxious. SKIN: Warm, dry, no rashes. Course - Re-evaluation Re-evalutation: 10/11/17 20:20 Patient had an episode of emesis about an hour ago. He says he now feels a lot better. Got up and went to the restroom and passed a lot of urine. I spoke with Dr. Myers about admitting the patient for IV antibiotics since his urine looks like he has an infection. He is agreeable to admitting the patient if he does not have an obstruction of either of the kidneys. I will order an ultrasound of the kidneys to determine if there is free flow on both sides. Patient's care is being turned over to Dr. Sinclair - Vital Signs Vital signs: Temp Pulse Resp BP Pulse Ox 98.1 F 87 12 151/66 H 96 10/12/17 11:50 10/12/17 11:50 10/12/17 11:50 10/12/17 11:50 10/12/17 11:50 - Laboratory Result Diagrams: 10/12/17 08:40 10/12/17 05:30 Laboratory results interpreted by me: 10/11/17 10/11/17 10/11/17 17:56 17:56 19:13 RBC 3.86 L Hgb 11.8 L Hct 35.4 L RDW 19.4 H Plt Count 70 L Seg Neuts % (Manual) 86 H Lymphocytes % (Manual) 3 L Metamyelocytes % 1 H Abs Lymphs (Manual) 0.3 L Sodium 136.4 L Glucose 129 H Calcium 7.7 L Alkaline Phosphatase 248 H Total Protein 5.1 L Albumin 3.0 L Urine Protein 30 H Urine Ketones TRACE H Urine Blood SMALL H Ur Leukocyte Esterase LARGE H Discharge - Discharge Clinical Impression: Vomiting, Prostate cancer, UTI (urinary tract infection) Condition: Stable
[2017-10-11 18:38] LABS: ABSOLUTE LYMPHOCYTES# (MANUAL) 0.3 10^3/uL (0.5-4.7); ABSOLUTE MONOCYTES # (MANUAL) 0.3 10^3/uL (0.1-1.4); ABSOLUTE NEUTROPHILS# (MANUAL) 7.8 10^3/uL (1.7-8.2); BAND NEUTROPHILS % (MANUAL) 5 % (3-5); BASOPHILS % (MANUAL) 1 % (0-2); EOSINOPHILS % (MANUAL) 0 % (0-6); LYMPHOCYTES % (MANUAL) 3 % (13-45); METAMYELOCYTES % (MANUAL) 1 % (0); MONOCYTES % (MANUAL) 4 % (3-13); NUCLEATED RED BLOOD CELLS 1 /100 WBC (0); SEGMENTED NEUTROPHILS % (MAN) 86 % (42-78); TOTAL CELLS COUNTED 100
[2017-10-11 18:39] LABS: ANISOCYTOSIS 2+; OVALOCYTES SLIGHT; PLATELET COMMENT DECREASED; POIKILOCYTOSIS SLIGHT; TEAR DROP CELLS SLIGHT; TOXIC GRANULATION SLIGHT
[2017-10-11] MEDS ORDERED: ONDANSETRON 4 MG TAB.RAPDIS PO ONE (19:17)
[2017-10-11] MEDS ORDERED: METOCLOPRAMIDE HCL 10 MG TABLET PO ONE (19:20)
[2017-10-11 19:35] LABS: APPEARANCE,URINE CLOUDY; BILIRUBIN,URINE NEGATIVE (NEGATIVE); COLOR,URINE YELLOW; GLUCOSE, URINE NEGATIVE (NEGATIVE); KETONES,URINE TRACE mg/dL (NEGATIVE); LEUKOCYTE ESTERASE,URINE LARGE (NEGATIVE); NITRITE,URINE NEGATIVE (NEGATIVE); PROTEIN,URINE 30 mg/dL (NEGATIVE); URINE SPECIFIC GRAVITY 1.005; UROBILINOGEN,URINE NEGATIVE mg/dL (<2.0)
[2017-10-11] MEDS ORDERED: CEFTRIAXONE INJ 1000 MG VIAL IV ONE (19:59)
--- NOTE | 2017-10-11 21:39 | RADIOLOGY REPORT (SQ) ---
EXAM DESCRIPTION: U/S RETROPERITON LTD COMPLETED DATE/TIME: 10/11/2017 9:15 pm REASON FOR STUDY: UTI, Hx CA prostate, Hx radiation,R/O renal obstru COMPARISON: None. TECHNIQUE: Dynamic and static grayscale images acquired of the kidneys and bladder and recorded on P ACS. Additional selected color Doppler and spectral images recorded. LIMITATIONS: None. FINDINGS: RIGHT KIDNEY: Normal size. Multiple cysts, largest 9 cm. . No solid or suspicious ma sses. No hydronephrosis. No calcifications. LEFT KIDNEY: Normal size. Multiple cysts, largest 4.5 cm. No solid or suspicious masses. No hyd ronephrosis. No calcifications. BLADDER: Decompressed. OTHER FINDINGS: No other significant finding. IMPRESSION: No evidence for hydronephrosis. Bilateral cysts. TECHNICAL DOCUMENTATION: JOB ID: [id number] 2010 [employer]- All Rights Reserved Reading location - IP/workstation name: [email or web address]
[2017-10-11] MEDS ORDERED: IPRATROPIUM/ALBUTEROL 0.5-2.5 MG/3 ML AMPUL NEB PRN (22:13)
[2017-10-11] MEDS ORDERED: MAG HYDROX/AL HYDROX/SIMETH SUSP 30 ML UDCUP PO PRN (22:13)
[2017-10-11] MEDS ORDERED: ACETAMINOPHEN 325 MG TABLET PO PRN (22:13)
[2017-10-11] MEDS ORDERED: MAGNESIUM HYDROXIDE SUSP 30 ML UDCUP PO PRN (22:13)
[2017-10-11] MEDS ORDERED: HYDRALAZINE HCL INJ/PF 20 MG/1 ML SDV IV PRN (22:16)
[2017-10-11] MEDS ORDERED: LACTULOSE SYRUP 20 GM/30 ML UDCUP PO ONE (22:16)
[2017-10-11] MEDS: NORMAL SALINE 1000 ML 1,000 ML IV PRN (22:50)
[2017-10-11] MEDS ORDERED: PROMETHAZINE HCL 25 MG TABLET PO ONE (23:06)
[2017-10-12] MEDS: PROMETHAZINE HCL 25 MG TABLET PO PRN ×4 (00:58→23:04)
[2017-10-12] MEDS: NORMAL SALINE 1000 ML 1,000 ML IV PRN (03:10)
--- NOTE | 2017-10-12 05:28 | PDOC H&P ---
History of Present Illness Admission Date/PCP: 10/11/17 23:10 BLANKA RICO PA-C Patient complains of: Generalized weakness, nausea and vomiting History of Present Illness: REMIGIO MCGRAW is a 82 year old male with a three-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 He presents with 3 days of diarrhea followed by generalized weakness nausea and vomiting. He denies blurred vision, headache fever or chills. In the emergency room is found to have pyuria with hypocalcemia and an unremarkable renal ultrasound he started on empiric antibiotics and referred to the hospitalist for admission. Patient denies recent antibiotic use. Past Medical History Cardiac Medical History: Reports: Hypertension Denies: Atrial Fibrillation, Congestive Heart Failure, Coronary Artery Disease, Myocardial Infarction - hx of chest pain x1, 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 Sterling, Hyperlipidema, Peripheral Vascular Disease, Pulmonary Embolism, Heart Murmur Pulmonary Medical History: Reports: Asthma, Chronic Obstructive Pulmonary Disease (COPD) Denies: Bronchitis, Pneumonia, Respiratory Failure, Sleep Apnea, Tuberculosis Neurological Medical History: Denies: Seizures Endocrine Medical History: Denies: Hyperthyroidism, Hypothyroidism Renal/ Medical History: Denies: End Stage Renal Disease Malignancy Medical History: Reports: Other - Prostate cancer with diffuse metastases Denies: Breast Cancer, Cervical Cancer - n/a, Lung Cancer, Ovarian Cancer - n /a GI Medical History: Reports: Gastroesophageal Reflux Disease Denies: Crohn's Disease, Hepatitis, Hiatal Hernia Musculoskeltal Medical History: Reports: Arthritis Denies: Fibromyalgia Skin Medical History: Reports: None Psychiatric Medical History: Reports: None Traumatic Medical History: Reports: None Hematology: Reports: Other - Thrombocytopenia Infectious Medical History: Past Surgical History Past Surgical History: Reports: Cholecystectomy, Orthopedic Surgery, Other - Radical prostatectomy Denies: Appendectomy, Colostomy, Coronary Artery Bypass Graft, Gastric Bypass Surgery, Herniorrhaphy, Pacemaker, Tonsillectomy Social History Information Source: Patient Lives with: Family Smoking Status: Never Smoker Frequency of Alcohol Use: None Hx Recreational Drug Use: No Drugs: None Hx Prescription Drug Abuse: No - Advance Directive Resuscitation Status: Full Code Family History Family History: Hypertension Parental Family History Reviewed: Yes Children Family History Reviewed: Yes Sibling(s) Family History Reviewed.: Yes Medication/Allergy Home Medications: Allopurinol [Zyloprim 300 Mg Tablet] 300 mg PO DAILY 06/18/11 Atorvastatin Calcium [Lipitor 40 Mg Tablet] 20 mg PO QHS 06/18/11 Fluticasone/Salmeterol [Advair 250-50 Diskus] 1 puff IH DAILY 06/18/11 Nitroglycerin [Nitrostat 0.4 mg (1/150 Gr) Tabs 25/Bottle] 0.4 mg SL PRN PRN 18/05 Amlodipine Besylate [Norvasc 5 mg Tablet] 5 mg PO DAILY 08/25/13 Hydrocodone Bit/Acetaminophen [Hydrocodon-Acetaminophen 5-325] 1 each PO Q6 #15 tablet 01/10/14 Doxazosin Mesylate 2 mg PO BID 02/10/15 Esomeprazole Magnesium [Nexium] 40 mg PO DAILY 02/10/15 Metoprolol Succinate [Toprol Xl] 50 mg PO DAILY 02/10/15 Prednisone 5 mg PO BID 02/10/15 Zinc Citrate/Phytase [Zytaze Capsule] 4 tab PO DAILY 02/10/15 Nitrofurantoin/Nitrofuran Mac [Macrobid 100 mg Capsule] 1 tab PO BID #20 capsule 05/04/15 Ondansetron [Zofran Odt 4 mg Tablet] 1 - 2 tab PO Q4H PRN #20 tab.rapdis Nitrofurantoin/Nitrofuran Mac [Macrobid 100 mg Capsule] 1 tab PO BID #14 capsule 09/28/16 Oxycodone HCl/Acetaminophen [Percocet 5-325 mg Tablet] 1 - 2 tab PO Q4HP PRN # 30 tablet 09/28/16 Promethazine HCl [Phenergan 25 mg Tablet] 1 - 2 tab PO Q6HP PRN #20 tablet 09/28 Allergies/Adverse Reactions: metformin Allergy (Verified 10/11/17 16:54) Diarrhea Review of Systems Constitutional: PRESENT: as per HPI, anorexia, fatigue, weakness. ABSENT: fever (s), headache(s), night sweats Eyes: ABSENT: visual disturbances Ears: ABSENT: hearing changes Cardiovascular: ABSENT: chest pain, dyspnea on exertion, edema, orthropnea, palpitations Respiratory: ABSENT: cough, hemoptysis Gastrointestinal: PRESENT: as per HPI, diarrhea, nausea, vomiting. ABSENT: heartburn, hematemesis, hematochezia Genitourinary: ABSENT: dysuria, hematuria Musculoskeletal: ABSENT: joint swelling Integumentary: ABSENT: rash, wounds Neurological: ABSENT: abnormal gait, abnormal speech, confusion, dizziness, focal weakness, syncope Psychiatric: ABSENT: anxiety, depression, homidical ideation, suicidal ideation Endocrine: ABSENT: cold intolerance, heat intolerance, polydipsia, polyuria Hematologic/Lymphatic: ABSENT: easy bleeding, easy bruising Physical Exam Vital Signs: Temp Pulse Resp BP Pulse Ox 98.4 F 83 14 129/55 H 97 10/12/17 01:25 10/12/17 02:00 10/12/17 01:25 10/12/17 01:25 10/12/17 01:25 Intake & Output 10/10/17 10/11/17 10/12/17 11:59 11:59 11:59 Weight 75.3 kg General appearance: PRESENT: cooperative, mild distress, well-developed. ABSENT : disheveled Head exam: PRESENT: atraumatic, normocephalic Eye exam: PRESENT: conjunctiva pink, EOMI, PERRLA. ABSENT: scleral icterus Ear exam: PRESENT: normal external ear exam Mouth exam: PRESENT: moist, tongue midline Neck exam: ABSENT: carotid bruit, JVD, lymphadenopathy, thyromegaly Respiratory exam: PRESENT: clear to auscultation nicole. ABSENT: rales, rhonchi, wheezes Cardiovascular exam: PRESENT: RRR. ABSENT: diastolic murmur, rubs, systolic murmur Pulses: PRESENT: normal dorsalis pedis pul Vascular exam: PRESENT: normal capillary refill GI/Abdominal exam: PRESENT: hyperactive bowel sounds, normal bowel sounds, soft. ABSENT: distended, guarding, mass, organolmegaly, rebound, tenderness Rectal exam: PRESENT: deferred Gentrourinary exam: PRESENT: other - Urostomy intact Extremities exam: PRESENT: full ROM. ABSENT: calf tenderness, clubbing, pedal edema Neurological exam: PRESENT: alert, awake, oriented to person, oriented to place , oriented to time, oriented to situation, CN II-XII grossly intact. ABSENT: motor sensory deficit Psychiatric exam: PRESENT: appropriate affect, normal mood. ABSENT: homicidal ideation, suicidal ideation Skin exam: PRESENT: dry, intact, warm. ABSENT: cyanosis, rash Results Impressions: Renal Ultrasound 10/11/17 20:01 IMPRESSION: No evidence for hydronephrosis. Bilateral cysts. Assessment & Plan - Diagnosis (1) UTI (urinary tract infection) Is this a current diagnosis for this admission?: Yes Plan: Complicated by prostate cancer and urostomy, empiric antibiotics initiated follow-up CBC and urine culture (2) Hypercalcemia Is this a current diagnosis for this admission?: Yes Plan: Corrected by hypoalbuminemia. Reevaluate as needed (3) Prostate cancer Is this a current diagnosis for this admission?: Yes Plan: Presenting with nausea vomiting complicated by diffuse metastasis of prostate cancer, follow-up CT head (4) Vomiting Is this a current diagnosis for this admission?: Yes Plan: Symptomatic management, evaluate CT head - Time Time Spent: 50 to 70 Minutes - Inpatient Certification Medical Necessity: Need Close Monitoring Due to Risk of Patient Decompensation
[2017-10-12] MEDS ORDERED: HEPARIN SOD (PORCINE) 5,000 UNIT/ML 1 ML SYRINGE SUBCUT SCH (06:00)
--- NOTE | 2017-10-12 06:04 | RADIOLOGY REPORT (SQ) ---
EXAM DESCRIPTION: CT HEAD WITHOUT IV CONTRAST CLINICAL HISTORY: 82 years Male, nausea w vomiting prostate ca w dif mets COMPARISON: None. TECHNIQUE: No contrast. Coronal and sagittal reformat. This exam was performed according to our departmental dose-optimization program, which includes automated exposure control, adjustment of the mA and/or kV according to patient size and/or use of iterative reconstruction technique. FINDINGS: No hemorrhage. No mass, mass effect, or midline shift. Complete or near-complete occlusion of the sphenoid air cells and left maxillary sinus with central areas of high density may indicate sinus mycetoma. Mild parenchymal volume loss. 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 Brain and extra-axial structures appear otherwise intact. IMPRESSION: Sinus mycetoma pattern; differential diagnosis includes chronic sinusitis. No acute CT findings of the brain.
[2017-10-12 06:44] LABS: ANION GAP 14 (5-19); BLOOD UREA NITROGEN 10 mg/dL (7-20); CALCIUM 7.2 mg/dL (8.4-10.2); CARBON DIOXIDE 18 mmol/L (22-30); CHLORIDE 109 mmol/L (98-107); GLUCOSE 93 mg/dL (75-110); POTASSIUM 3.4 mmol/L (3.6-5.0); SODIUM 140.8 mmol/L (137-145)
[2017-10-12 08:01] LABS: HEMATOCRIT 22.5 % (37.9-51.0); MEAN CORPUSCULAR HEMOGLOBIN 30.7 pg (27.0-33.4); MEAN CORPUSCULAR HGB CONC 33.2 g/dL (32.0-36.0); MEAN CORPUSCULAR VOLUME 92 fl (80-97); RED BLOOD COUNT 2.44 10^6/uL (4.35-5.55); RED CELL DISTRIBUTION WIDTH 19.4 % (11.5-14.0); WHITE BLOOD COUNT 13.5 10^3/uL (4.0-10.5)
[2017-10-12 08:29] LABS: ABSOLUTE LYMPHOCYTES# (MANUAL) 0.7 10^3/uL (0.5-4.7); ABSOLUTE MONOCYTES # (MANUAL) 0.4 10^3/uL (0.1-1.4); ABSOLUTE NEUTROPHILS# (MANUAL) 12.4 10^3/uL (1.7-8.2); BASOPHILS % (MANUAL) 0 % (0-2); EOSINOPHILS % (MANUAL) 0 % (0-6); LYMPHOCYTES % (MANUAL) 5 % (13-45); MONOCYTES % (MANUAL) 3 % (3-13); NUCLEATED RED BLOOD CELLS 1 /100 WBC (0); SEGMENTED NEUTROPHILS % (MAN) 92 % (42-78); TOTAL CELLS COUNTED 100
[2017-10-12 08:34] LABS: ANISOCYTOSIS 2+; OVALOCYTES SLIGHT; PLATELET COMMENT DECREASED; POIKILOCYTOSIS 1+; TEAR DROP CELLS 1+; TOXIC GRANULATION 2+
[2017-10-12 08:35] LABS: PLATELET COUNT 75 10^3/uL (150-450)
[2017-10-12 08:42] LABS: HEMOGLOBIN 7.5 g/dL (13.5-17.0)
[2017-10-12 08:54] LABS: HEMATOCRIT 22.8 % (37.9-51.0); MEAN CORPUSCULAR HEMOGLOBIN 30.5 pg (27.0-33.4); MEAN CORPUSCULAR HGB CONC 33.2 g/dL (32.0-36.0); MEAN CORPUSCULAR VOLUME 92 fl (80-97); RED BLOOD COUNT 2.48 10^6/uL (4.35-5.55); RED CELL DISTRIBUTION WIDTH 19.4 % (11.5-14.0); WHITE BLOOD COUNT 15.1 10^3/uL (4.0-10.5)
[2017-10-12 09:11] LABS: PLATELET COUNT 82 10^3/uL (150-450)
[2017-10-12 09:12] LABS: HEMOGLOBIN 7.6 g/dL (13.5-17.0)
[2017-10-12] MEDS ORDERED: LOPERAMIDE HCL 2 MG CAPSULE PO ONE (10:00)
[2017-10-12] MEDS: ONDANSETRON HCL INJ/PF 4 MG/2 ML SDV IV PRN ×2 (10:10→20:13)
[2017-10-12] MEDS ORDERED: NORMAL SALINE 250 ML IV PRN ×2 (12:02)
[2017-10-12] MEDS: DOXAZOSIN MESYLATE 2 MG TABLET PO SCH ×2 (12:22→17:33)
[2017-10-12] MEDS: AMLODIPINE BESYLATE 5 MG TABLET PO SCH (12:22)
[2017-10-12] MEDS: DOCUSATE SODIUM 100 MG CAPSULE PO SCH ×2 (12:22→17:34)
--- NOTE | 2017-10-12 12:24 | PDOC PROGRESS REPORT ---
Subjective Progress Note for:: 10/12/17 Subjective:: I seen patient resting in bed. He is awake alert and oriented. Patient still has watery diarrhea. The new finding is that his hemoglobin drops from 11to7.5. Stool for occult blood and C. difficile colitis requested. Patient is going to be transfused with 2 units of packed RBC. Reason For Visit: UTI PROSTATIE CA NAUSEA VOMITING Physical Exam Vital Signs: Temp Pulse Resp BP Pulse Ox 98.2 F 86 18 124/51 L 97 10/12/17 07:54 10/12/17 08:52 10/12/17 08:52 10/12/17 07:54 10/12/17 08:52 Intake & Output 10/11/17 10/12/17 10/13/17 06:59 06:59 06:59 Intake Total 1750 Balance 1750 Weight 75.3 kg General appearance: PRESENT: no acute distress, well-developed, well-nourished Eye exam: PRESENT: conjunctiva pink Respiratory exam: PRESENT: clear to auscultation nicole. ABSENT: rales, rhonchi, wheezes Cardiovascular exam: PRESENT: RRR. ABSENT: diastolic murmur, rubs, systolic murmur GI/Abdominal exam: PRESENT: normal bowel sounds, soft. ABSENT: distended, guarding, mass, organolmegaly, rebound, tenderness Neurological exam: PRESENT: alert, awake, oriented to person, oriented to place , oriented to time, oriented to situation, CN II-XII grossly intact. ABSENT: motor sensory deficit Psychiatric exam: PRESENT: appropriate affect, normal mood. ABSENT: homicidal ideation, suicidal ideation Results Laboratory Results: 10/12/17 08:40 10/12/17 05:30 10/12/17 10/12/17 10/12/17 05:30 05:30 07:30 WBC Cancelled 13.5 H RBC Cancelled 2.44 L Hgb Cancelled 7.5 L D Hct Cancelled 22.5 L MCV Cancelled 92 MCH Cancelled 30.7 MCHC Cancelled 33.2 RDW Cancelled 19.4 H Plt Count Cancelled 75 L Seg Neutrophils % Cancelled Not Reportable Lymphocytes % Cancelled Not Reportable Monocytes % Cancelled Not Reportable Eosinophils % Cancelled Not Reportable Basophils % Cancelled Not Reportable Absolute Neutrophils Cancelled Not Reportable Absolute Lymphocytes Cancelled Not Reportable Absolute Monocytes Cancelled Not Reportable Absolute Eosinophils Cancelled Not Reportable Absolute Basophils Cancelled Not Reportable Sodium 140.8 Potassium 3.4 L Chloride 109 H Carbon Dioxide 18 L Anion Gap 14 BUN 10 Creatinine 0.75 Est GFR ( Amer) > 60 Est GFR (Non-Af Amer) > 60 Glucose 93 Calcium 7.2 L 10/12/17 08:40 WBC 15.1 H RBC 2.48 L Hgb 7.6 L Hct 22.8 L MCV 92 MCH 30.5 MCHC 33.2 RDW 19.4 H Plt Count 82 L Seg Neutrophils % Lymphocytes % Monocytes % Eosinophils % Basophils % Absolute Neutrophils Absolute Lymphocytes Absolute Monocytes Absolute Eosinophils Absolute Basophils Sodium Potassium Chloride Carbon Dioxide Anion Gap BUN Creatinine Est GFR ( Amer) Est GFR (Non-Af Amer) Glucose Calcium Impressions: Renal Ultrasound 10/11/17 20:01 IMPRESSION: No evidence for hydronephrosis. Bilateral cysts. Head CT 10/12/17 00:00 IMPRESSION: Sinus mycetoma pattern; differential diagnosis includes chronic sinusitis. No acute CT findings of the brain. Assessment & Plan - Diagnosis (1) Diarrhea Qualifiers: Diarrhea type: unspecified type Qualified Code(s): R19.7 - Diarrhea, unspecified Is this a current diagnosis for this admission?: Yes Plan: We will do stool for C. difficile and stool culture. The meantime we will cautiously hydrate him. (2) Hypertension Qualifiers: Hypertension type: essential hypertension Qualified Code(s): I10 - Essential (primary) hypertension Is this a current diagnosis for this admission?: Yes Plan: His home medications. (3) COPD (chronic obstructive pulmonary disease) Qualifiers: Emphysema type: unspecified Is this a current diagnosis for this admission?: Yes (4) Prostate cancer Is this a current diagnosis for this admission?: Yes Plan: As needed bruising treatment (5) Anemia Is this a current diagnosis for this admission?: Yes Plan: Etiology unknown. Stool for occult blood requested and also iron study. Patient scheduled to be transfused 2 units of packed RBC. - Time Time Spent with patient: 35 or more minutes
[2017-10-12] MEDS ORDERED: CEFTRIAXONE 1 GM/D5W RTU 1 GM/50 ML RTUPB IV SCH (22:00)
[2017-10-12] MEDS: CEFTRIAXONE SODIUM 1,000 MG in DEXTROSE 5%-WATER 50 ML IV SCH (22:59)
[2017-10-12] MEDS: ATORVASTATIN CALCIUM 40 MG TABLET PO SCH (22:59)
[2017-10-12 23:24] LABS: HEMATOCRIT 27.4 % (37.9-51.0); HEMOGLOBIN 9.2 g/dL (13.5-17.0); MEAN CORPUSCULAR HEMOGLOBIN 29.9 pg (27.0-33.4); MEAN CORPUSCULAR HGB CONC 33.7 g/dL (32.0-36.0); MEAN CORPUSCULAR VOLUME 89 fl (80-97); RED BLOOD COUNT 3.09 10^6/uL (4.35-5.55); RED CELL DISTRIBUTION WIDTH 19.3 % (11.5-14.0); WHITE BLOOD COUNT 18.2 10^3/uL (4.0-10.5)
[2017-10-12 23:59] LABS: ABSOLUTE LYMPHOCYTES# (MANUAL) 0.9 10^3/uL (0.5-4.7); ABSOLUTE MONOCYTES # (MANUAL) 0.7 10^3/uL (0.1-1.4); ABSOLUTE NEUTROPHILS# (MANUAL) 16.6 10^3/uL (1.7-8.2); BAND NEUTROPHILS % (MANUAL) 9 % (3-5); BASOPHILS % (MANUAL) 0 % (0-2); EOSINOPHILS % (MANUAL) 0 % (0-6); LYMPHOCYTES % (MANUAL) 5 % (13-45); MONOCYTES % (MANUAL) 4 % (3-13); NUCLEATED RED BLOOD CELLS 2 /100 WBC (0); SEGMENTED NEUTROPHILS % (MAN) 75 % (42-78); TOTAL CELLS COUNTED 100
[2017-10-13 00:06] LABS: ANISOCYTOSIS 2+; POIKILOCYTOSIS 1+; POLYCHROMASIA SLIGHT; TOXIC GRANULATION 1+
[2017-10-13 00:07] LABS: ACANTHOCYTES SLIGHT; BURR CELLS 1+; HOWELL-JOLLY BODIES PRESENT; PLATELET COMMENT DECREASED; PLATELET LARGE PRESENT; SCHISTOCYTES SLIGHT; TEAR DROP CELLS 1+
[2017-10-13 00:13] LABS: PLATELET COUNT 74 10^3/uL (150-450)
[2017-10-13 00:14] LABS: PROMYELOCYTES % (MANUAL) 1 % (0)
[2017-10-13 00:15] LABS: METAMYELOCYTES % (MANUAL) 3 % (0); MYELOCYTES % (MANUAL) 3 % (0)
[2017-10-13] MEDS: PROMETHAZINE HCL 25 MG TABLET PO PRN ×3 (06:46→22:10)
[2017-10-13 07:10] LABS: HEMATOCRIT 27.7 % (37.9-51.0); HEMOGLOBIN 9.4 g/dL (13.5-17.0); MEAN CORPUSCULAR HGB CONC 33.9 g/dL (32.0-36.0); MEAN CORPUSCULAR VOLUME 89 fl (80-97); RED BLOOD COUNT 3.12 10^6/uL (4.35-5.55); RED CELL DISTRIBUTION WIDTH 19.5 % (11.5-14.0); RETICULOCYTE COUNT (AUTO) 1.29 % (0.66-2.85); WHITE BLOOD COUNT 18.1 10^3/uL (4.0-10.5)
[2017-10-13 07:32] LABS: ANION GAP 12 (5-19); BLOOD UREA NITROGEN 8 mg/dL (7-20); CARBON DIOXIDE 19 mmol/L (22-30); CHLORIDE 110 mmol/L (98-107); GLUCOSE 77 mg/dL (75-110); IRON(TIBC) 57.9 ug/dL (49-181); POTASSIUM 3.2 mmol/L (3.6-5.0); SODIUM 141.4 mmol/L (137-145)
[2017-10-13 07:46] LABS: PLATELET COUNT 65 10^3/uL (150-450)
[2017-10-13 07:53] LABS: ABSOLUTE MONOCYTES # (MANUAL) 0.4 10^3/uL (0.1-1.4); ABSOLUTE NEUTROPHILS# (MANUAL) 15.7 10^3/uL (1.7-8.2); BASOPHILS % (MANUAL) 0 % (0-2); EOSINOPHILS % (MANUAL) 0 % (0-6); LYMPHOCYTES % (MANUAL) 11 % (13-45); METAMYELOCYTES % (MANUAL) 1 % (0); MONOCYTES % (MANUAL) 2 % (3-13); SEGMENTED NEUTROPHILS % (MAN) 86 % (42-78); TOTAL CELLS COUNTED 100
[2017-10-13 07:58] LABS: ANISOCYTOSIS 2+; OVALOCYTES 1+; PLATELET COMMENT DECREASED; POIKILOCYTOSIS 2+; TOXIC GRANULATION 1+
[2017-10-13 08:42] LABS: CALCIUM 6.9 mg/dL (8.4-10.2)
[2017-10-13] MEDS ORDERED: DRONABINOL 2.5 MG CAPSULE PO PRN (09:19)
[2017-10-13] MEDS: DOXAZOSIN MESYLATE 2 MG TABLET PO SCH ×2 (09:52→17:19)
[2017-10-13] MEDS: AMLODIPINE BESYLATE 5 MG TABLET PO SCH (09:57)
[2017-10-13] MEDS: DOCUSATE SODIUM 100 MG CAPSULE PO SCH ×2 (09:57→17:19)
[2017-10-13 10:23] LABS: HEMOGLOBIN 9.6 g/dL (13.5-17.0); MEAN CORPUSCULAR HEMOGLOBIN 29.6 pg (27.0-33.4); MEAN CORPUSCULAR HGB CONC 33.3 g/dL (32.0-36.0); MEAN CORPUSCULAR VOLUME 89 fl (80-97); RED BLOOD COUNT 3.26 10^6/uL (4.35-5.55); RED CELL DISTRIBUTION WIDTH 20.1 % (11.5-14.0); WHITE BLOOD COUNT 16.7 10^3/uL (4.0-10.5)
[2017-10-13 10:49] LABS: PLATELET COUNT 65 10^3/uL (150-450)
[2017-10-13 11:10] LABS: ABSOLUTE LYMPHOCYTES# (MANUAL) 1.2 10^3/uL (0.5-4.7); ABSOLUTE MONOCYTES # (MANUAL) 0.7 10^3/uL (0.1-1.4); ABSOLUTE NEUTROPHILS# (MANUAL) 14.7 10^3/uL (1.7-8.2); BAND NEUTROPHILS % (MANUAL) 8 % (3-5); BASOPHILS % (MANUAL) 1 % (0-2); EOSINOPHILS % (MANUAL) 0 % (0-6); LYMPHOCYTES % (MANUAL) 7 % (13-45); MONOCYTES % (MANUAL) 4 % (3-13); NUCLEATED RED BLOOD CELLS 2 /100 WBC (0); SEGMENTED NEUTROPHILS % (MAN) 80 % (42-78); TOTAL CELLS COUNTED 100
[2017-10-13 11:12] LABS: ANISOCYTOSIS 2+; OVALOCYTES SLIGHT; PLATELET COMMENT DECREASED; POIKILOCYTOSIS 1+; POLYCHROMASIA SLIGHT; TEAR DROP CELLS 1+; TOXIC GRANULATION 1+
[2017-10-13] MEDS ORDERED: METOPROLOL TARTRATE PF/INJ 5 MG/5 ML SDV IV ONE (20:00)
[2017-10-13 20:42] LABS: ANION GAP 12 (5-19); BLOOD UREA NITROGEN 9 mg/dL (7-20); CARBON DIOXIDE 21 mmol/L (22-30); CHLORIDE 109 mmol/L (98-107); GLUCOSE 76 mg/dL (75-110); POTASSIUM 3.3 mmol/L (3.6-5.0); SODIUM 142.4 mmol/L (137-145)
[2017-10-13] MEDS: MIRTAZAPINE 15 MG TABLET PO SCH (21:10)
[2017-10-13] MEDS: ATORVASTATIN CALCIUM 40 MG TABLET PO SCH (21:10)
[2017-10-13] MEDS: CEFTRIAXONE SODIUM 1,000 MG in DEXTROSE 5%-WATER 50 ML IV SCH (21:11)
[2017-10-14] MEDS: NORMAL SALINE 1000 ML 1,000 ML IV PRN (00:15)
[2017-10-14] MEDS: PROMETHAZINE HCL 25 MG TABLET PO PRN ×3 (06:42→22:00)
[2017-10-14 07:00] LABS: HEMATOCRIT 29.8 % (37.9-51.0); MEAN CORPUSCULAR HEMOGLOBIN 29.7 pg (27.0-33.4); MEAN CORPUSCULAR HGB CONC 33.4 g/dL (32.0-36.0); MEAN CORPUSCULAR VOLUME 89 fl (80-97); RED BLOOD COUNT 3.36 10^6/uL (4.35-5.55); WHITE BLOOD COUNT 16.6 10^3/uL (4.0-10.5)
[2017-10-14] MEDS ORDERED: DOXAZOSIN MESYLATE 2 MG TABLET PO ONE (07:00)
[2017-10-14 07:21] LABS: CARBON DIOXIDE 16 mmol/L (22-30); GLUCOSE 79 mg/dL (75-110); POTASSIUM 3.3 mmol/L (3.6-5.0)
[2017-10-14 07:22] LABS: BLOOD UREA NITROGEN 10 mg/dL (7-20)
[2017-10-14 07:23] LABS: ANION GAP 17 (5-19); CHLORIDE 110 mmol/L (98-107); SODIUM 142.8 mmol/L (137-145)
[2017-10-14 07:31] LABS: CALCIUM 6.9 mg/dL (8.4-10.2)
[2017-10-14 08:20] LABS: EOSINOPHILS % (MANUAL) 0 % (0-6); PLATELET COUNT 57 10^3/uL (150-450); TOTAL CELLS COUNTED 100
[2017-10-14 08:21] LABS: ABSOLUTE LYMPHOCYTES# (MANUAL) 0.8 10^3/uL (0.5-4.7); BAND NEUTROPHILS % (MANUAL) 11 % (3-5); LYMPHOCYTES % (MANUAL) 5 % (13-45); SEGMENTED NEUTROPHILS % (MAN) 74 % (42-78)
[2017-10-14 08:22] LABS: ABSOLUTE NEUTROPHILS# (MANUAL) 15.1 10^3/uL (1.7-8.2); NUCLEATED RED BLOOD CELLS 1 /100 WBC (0)
[2017-10-14 08:23] LABS: BASOPHILS % (MANUAL) 2 % (0-2)
[2017-10-14 08:25] LABS: ABSOLUTE MONOCYTES # (MANUAL) 0.3 10^3/uL (0.1-1.4); MONOCYTES % (MANUAL) 2 % (3-13)
[2017-10-14 08:26] LABS: ANISOCYTOSIS 2+; TEAR DROP CELLS SLIGHT; TOXIC GRANULATION 1+; TOXIC VACUOLATION PRESENT
[2017-10-14 08:27] LABS: OVALOCYTES SLIGHT; PLATELET COMMENT DECREASED; POIKILOCYTOSIS 1+; POLYCHROMASIA SLIGHT
[2017-10-14 08:30] LABS: METAMYELOCYTES % (MANUAL) 4 % (0); MYELOCYTES % (MANUAL) 2 % (0)
[2017-10-14] MEDS: DOCUSATE SODIUM 100 MG CAPSULE PO SCH ×2 (09:34→17:03)
[2017-10-14] MEDS: AMLODIPINE BESYLATE 5 MG TABLET PO SCH (09:40)
[2017-10-14] MEDS ORDERED: CALCIUM GLUCONATE 1000 MG/10 ML INJ IV ONE (13:00)
--- NOTE | 2017-10-14 14:40 | PDOC PROGRESS REPORT ---
Subjective Progress Note for:: 10/14/17 Subjective:: Patient complains of some nausea. Otherwise patient reports this he feels much better than the previous days. Patient also found to be tachycardic with heart rate of 147 for which I requested EKG and EKG reveals sinus tachycardia. His labs also remarkable for hypocalcemia of 6.9 the ionized fraction also decreased Reason For Visit: UTI PROSTATIE CA NAUSEA VOMITING Physical Exam Vital Signs: Temp Pulse Resp BP Pulse Ox 98.5 F 134 H 16 123/78 97 10/14/17 12:00 10/14/17 12:00 10/14/17 12:00 10/14/17 12:00 10/14/17 12:00 Intake & Output 10/13/17 10/14/17 10/15/17 06:59 06:59 06:59 Intake Total 1325 828 Balance 1325 828 Weight 74.3 kg 72.3 kg General appearance: PRESENT: no acute distress, well-developed, well-nourished Head exam: PRESENT: atraumatic, normocephalic Neck exam: ABSENT: carotid bruit, JVD, lymphadenopathy, thyromegaly Respiratory exam: PRESENT: clear to auscultation nicole. ABSENT: rales, rhonchi, wheezes Cardiovascular exam: PRESENT: RRR. ABSENT: diastolic murmur, rubs, systolic murmur Neurological exam: PRESENT: alert, awake, oriented to person, oriented to place , oriented to time, oriented to situation, CN II-XII grossly intact. ABSENT: motor sensory deficit Psychiatric exam: PRESENT: appropriate affect, normal mood. ABSENT: homicidal ideation, suicidal ideation Results Laboratory Results: 10/14/17 06:40 10/14/17 06:40 10/13/17 10/14/17 10/14/17 20:10 06:40 06:40 WBC 16.6 H RBC 3.36 L Hgb 10.0 L Hct 29.8 L MCV 89 MCH 29.7 MCHC 33.4 RDW 20.0 H Plt Count 57 L Seg Neutrophils % Not Reportable Lymphocytes % Not Reportable Monocytes % Not Reportable Eosinophils % Not Reportable Basophils % Not Reportable Absolute Neutrophils Not Reportable Absolute Lymphocytes Not Reportable Absolute Monocytes Not Reportable Absolute Eosinophils Not Reportable Absolute Basophils Not Reportable Sodium 142.4 142.8 Potassium 3.3 L 3.3 L Chloride 109 H 110 H Carbon Dioxide 21 L 16 L Anion Gap 12 17 BUN 9 10 Creatinine 0.79 0.71 Est GFR ( Amer) > 60 > 60 Est GFR (Non-Af Amer) > 60 > 60 Glucose 76 79 Calcium 7.0 L* 6.9 L* Magnesium 1.7 Impressions: Renal Ultrasound 10/11/17 20:01 IMPRESSION: No evidence for hydronephrosis. Bilateral cysts. Head CT 10/12/17 00:00 IMPRESSION: Sinus mycetoma pattern; differential diagnosis includes chronic sinusitis. No acute CT findings of the brain. Assessment & Plan - Diagnosis (1) Diarrhea Qualifiers: Diarrhea type: unspecified type Qualified Code(s): R19.7 - Diarrhea, unspecified Is this a current diagnosis for this admission?: Yes Plan: Improving (2) Hypertension Qualifiers: Hypertension type: essential hypertension Qualified Code(s): I10 - Essential (primary) hypertension Is this a current diagnosis for this admission?: Yes Plan: His home medications. (3) COPD (chronic obstructive pulmonary disease) Qualifiers: Emphysema type: unspecified Is this a current diagnosis for this admission?: Yes (4) Prostate cancer Is this a current diagnosis for this admission?: Yes Plan: As needed bruising treatment (5) Anemia Is this a current diagnosis for this admission?: Yes Plan: Etiology unknown. Stool for occult blood requested and also iron study. Patient scheduled to be transfused 2 units of packed RBC. (6) Hypocalcemia Is this a current diagnosis for this admission?: Yes Plan: Etiology is unclear. Patient given a dose of calcium gluconate and is started on calcium and vitamin D combined. - Time Time Spent with patient: 25-34 minutes
--- NOTE | 2017-10-14 16:32 | EKG REPORT ---
SEVERITY:- ABNORMAL ECG - SINUS TACHYCARDIA, CONSIDER A FLUTTER WITH 2:1 CONDUCTION REPOLARIZATION ABNORMALITY, PROB RATE RELATED : Confirmed by: Juan Jose Springer 14-Oct-2017 16:31:59
[2017-10-14] MEDS: CALCIUM CARBONATE 250 MG/VITAMIN D3 125 UNIT TABLET PO SCH (17:09)
[2017-10-14] MEDS: DOXAZOSIN MESYLATE 2 MG TABLET PO SCH (17:10)
[2017-10-14] MEDS ORDERED: DILTIAZEM HCL 60 MG TABLET ONE (19:59)
[2017-10-14] MEDS: ONDANSETRON HCL INJ/PF 4 MG/2 ML SDV IV PRN (20:04)
[2017-10-14] MEDS ORDERED: DILTIAZEM HCL 60 MG TABLET PO ONE (20:15)
[2017-10-14] MEDS ORDERED: MAGNESIUM SULFATE/D5W 1 GM/100 ML RTUPB IV ONE (21:04)
[2017-10-14] MEDS: MIRTAZAPINE 15 MG TABLET PO SCH (21:16)
[2017-10-14] MEDS: ATORVASTATIN CALCIUM 40 MG TABLET PO SCH (21:16)
[2017-10-14] MEDS ORDERED: LEVOFLOXACIN 750 MG/D5W RTU 750 MG/150 ML RTUPB IV ONE (23:00)
[2017-10-15] MEDS: PROMETHAZINE HCL 25 MG TABLET PO PRN ×3 (06:17→21:25)
[2017-10-15 07:15] LABS: ANION GAP 14 (5-19); BLOOD UREA NITROGEN 14 mg/dL (7-20); CALCIUM 7.3 mg/dL (8.4-10.2); CARBON DIOXIDE 19 mmol/L (22-30); CHLORIDE 112 mmol/L (98-107); GLUCOSE 97 mg/dL (75-110); POTASSIUM 3.4 mmol/L (3.6-5.0); SODIUM 145.1 mmol/L (137-145)
[2017-10-15] MEDS: DOCUSATE SODIUM 100 MG CAPSULE PO SCH ×2 (09:08→17:27)
[2017-10-15] MEDS: AMLODIPINE BESYLATE 5 MG TABLET PO SCH (09:11)
[2017-10-15] MEDS: CALCIUM CARBONATE 250 MG/VITAMIN D3 125 UNIT TABLET PO SCH ×2 (09:11→18:28)
[2017-10-15] MEDS: DOXAZOSIN MESYLATE 2 MG TABLET PO SCH ×2 (09:12→18:27)
[2017-10-15] MEDS: NORMAL SALINE 1000 ML 1,000 ML IV PRN (09:22)
[2017-10-15 14:00] LABS: PATH REVIEW PATHOLOGIST REVIEWED
[2017-10-15 14:00] LABS: PATH REVIEW PATHOLOGIST REVIEWED
[2017-10-15] MEDS ORDERED: DILTIAZEM HCL 120 MG CAP.SR.24H PO ONE (16:00)
[2017-10-15] MEDS: ATORVASTATIN CALCIUM 40 MG TABLET PO SCH (21:24)
[2017-10-15] MEDS: MIRTAZAPINE 15 MG TABLET PO SCH (21:25)
[2017-10-15] MEDS ORDERED: LEVOFLOXACIN 750 MG/D5W RTU 750 MG/150 ML RTUPB IV SCH (22:00)
[2017-10-16] MEDS ORDERED: DILTIAZEM HCL 60 MG TABLET ONE (01:35)
[2017-10-16] MEDS ORDERED: DILTIAZEM HCL 60 MG TABLET PO ONE (02:00)
[2017-10-16] MEDS: PROMETHAZINE HCL 25 MG TABLET PO PRN (06:27)
[2017-10-16 06:35] LABS: HEMATOCRIT 26.3 % (37.9-51.0); HEMOGLOBIN 8.8 g/dL (13.5-17.0); MEAN CORPUSCULAR HEMOGLOBIN 29.8 pg (27.0-33.4); MEAN CORPUSCULAR HGB CONC 33.6 g/dL (32.0-36.0); MEAN CORPUSCULAR VOLUME 89 fl (80-97); RED BLOOD COUNT 2.96 10^6/uL (4.35-5.55); RED CELL DISTRIBUTION WIDTH 19.8 % (11.5-14.0); WHITE BLOOD COUNT 12.5 10^3/uL (4.0-10.5)
[2017-10-16 06:56] LABS: PLATELET COUNT 51 10^3/uL (150-450)
[2017-10-16 07:10] LABS: ANION GAP 10 (5-19); BLOOD UREA NITROGEN 10 mg/dL (7-20); CALCIUM 8.1 mg/dL (8.4-10.2); CARBON DIOXIDE 19 mmol/L (22-30); CHLORIDE 112 mmol/L (98-107); GLUCOSE 85 mg/dL (75-110); POTASSIUM 3.3 mmol/L (3.6-5.0); SODIUM 141.4 mmol/L (137-145)
[2017-10-16] MEDS ORDERED: ONDANSETRON HCL INJ/PF 4 MG/2 ML SDV IV PRN (07:30)
--- NOTE | 2017-10-16 08:25 | PDOC DISCHARGE SUMMARY ---
General - Admit/Disc Date/PCP Admission Date/Primary Care Provider: 10/11/17 23:10 BLANKA RICO PA-C Discharge Date: 10/16/17 - Discharge Diagnosis (1) Diarrhea Is this a current diagnosis for this admission?: Yes (2) Hypertension Is this a current diagnosis for this admission?: Yes (3) COPD (chronic obstructive pulmonary disease) Is this a current diagnosis for this admission?: Yes (4) Prostate cancer Is this a current diagnosis for this admission?: Yes (5) Anemia Is this a current diagnosis for this admission?: Yes (6) Hypocalcemia Is this a current diagnosis for this admission?: Yes (7) Leukocytosis Is this a current diagnosis for this admission?: Yes - Additional Information Resuscitation Status: Full Code Discharge Diet: As Tolerated Discharge Activity: Activity As Tolerated Prescriptions: Diltiazem HCl [Cardizem Cd 120 mg Capsule] 1 cap.sr PO DAILY #30 cap.sr Levofloxacin [Levaquin 500 mg Tablet] 500 mg PO DAILY #5 tablet Mirtazapine [Remeron] 30 mg PO DAILY #30 tab.rapdis Home Medications: Atorvastatin Calcium [Lipitor 20 mg Tablet] 20 mg PO QHS 10/12/17 Doxazosin Mesylate [Cardura 2 mg Tablet] 2 mg PO BID 10/12/17 Metoprolol Succinate [Toprol Xl 50 mg Tab.sr] 50 mg PO DAILY 10/12/17 Pantoprazole Sodium [Protonix] 40 mg PO DAILY 10/12/17 Prednisone [Deltasone 5 mg Tablet] 5 mg PO QAM 10/12/17 Nitroglycerin [Nitrostat 0.4 mg (1/150 Gr) Tabs 25/Bottle] 1 tab SL Q5MP PRN Diltiazem HCl [Cardizem Cd 120 mg Capsule] 1 cap.sr PO DAILY #30 cap.sr Levofloxacin [Levaquin 500 mg Tablet] 500 mg PO DAILY #5 tablet 10/16/17 Mirtazapine [Remeron] 30 mg PO DAILY #30 tab.rapdis 10/16/17 History of Present Illness History of Present Illness: REMIGIO MCGRAW is a 82 year old male with a three-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 He presents with 3 days of diarrhea followed by generalized weakness nausea and vomiting. He denies blurred vision, headache fever or chills. In the emergency room is found to have pyuria with hypocalcemia and an unremarkable renal ultrasound he started on empiric antibiotics and referred to the hospitalist for admission. Patient denies recent antibiotic use. Hospital Course Hospital Course: Mr. Mcgraw is a very pleasant 82 years old male patient admitted for generalized body weakness nausea and vomiting. His initial workup shows pyuria and hypocalcemia. During his stay patient also developed diarrhea leukocytosis and tachycardia ranging between 130-147. For his urinary tract infection patient has been started on Levaquin and his leukocytosis is trending down from 18.7-12.5. Of note his urine culture grew Proteus mirabilis which is pansensitive. For his hypocalcemia patient was given a dose of calcium gluconate and he was put on calcium and vitamin D3 currently it is within normal limits. His tachycardia is improving after he started on Cardizem p.o. Otherwise his hospital stays smooth and uneventful. Morning I evaluated the patient while he is resting in bed comfortably. He is not in pain or any form of distress he is awake alert and oriented. I will send him home with Levaquin 500 milligrams p.o. daily Remeron 30 mg p.o. daily and Cardizem extended release 150 mg p.o. daily. And I will continue also the rest of his home medications except amlodipine which is discontinued. Physical Exam Vital Signs: Temp Pulse Resp BP Pulse Ox 98.6 F 96 14 120/49 L 96 10/16/17 07:16 10/16/17 07:16 10/16/17 07:16 10/16/17 07:16 10/16/17 07:16 Intake & Output 10/15/17 10/16/17 10/17/17 06:59 06:59 06:59 Intake Total 9103 2739 Balance 1843 2739 Weight 74.2 kg 76.7 kg Results Laboratory Results: 10/16/17 06:05 10/16/17 06:05 10/16/17 10/16/17 06:05 06:05 WBC 12.5 H RBC 2.96 L Hgb 8.8 L Hct 26.3 L MCV 89 MCH 29.8 MCHC 33.6 RDW 19.8 H Plt Count 51 L Sodium 141.4 Potassium 3.3 L Chloride 112 H Carbon Dioxide 19 L Anion Gap 10 BUN 10 Creatinine 0.73 Est GFR ( Amer) > 60 Est GFR (Non-Af Amer) > 60 Glucose 85 Calcium 8.1 L Impressions: Renal Ultrasound 10/11/17 20:01 IMPRESSION: No evidence for hydronephrosis. Bilateral cysts. Head CT 10/12/17 00:00 IMPRESSION: Sinus mycetoma pattern; differential diagnosis includes chronic sinusitis. No acute CT findings of the brain. Qualifiers - * PATIENT BEING DISCHARGED WITH ANY OF THE FOLLOWING DIAGNOSIS: No
[2017-10-16 08:42] VITALS: BP 139/74
[2017-10-16] MEDS ORDERED: DILTIAZEM HCL 120 MG CAP.SR.24H PO SCH (10:00)
== END 2017-10-16 09:31 | disposition home or self-care (01) | DRG 690 ==
LOC: ER 16:51 → EH 23:10 → 4S 10-12 00:45
PROVIDERS: ADMIT Internal Medicine; ATTEND Internal Medicine
PROC: 3E0F73Z Introduction of Anti-inflammatory into Respiratory Tract, Via Natural or Artificial Opening (ICD-10-PCS; principal; 2017-10-12)
PROC: 30233N1 Transfusion of Nonautologous Red Blood Cells into Peripheral Vein, Percutaneous Approach (ICD-10-PCS; 2017-10-12)
DX: N39.0 Urinary tract infection, site not specified (principal); C79.9 Secondary malignant neoplasm of unspecified site; Q61.02 Congenital multiple renal cysts; I10 Essential (primary) hypertension; J44.9 Chronic obstructive pulmonary disease, unspecified; C61 Malignant neoplasm of prostate; D64.9 Anemia, unspecified; E83.51 Hypocalcemia; K21.9 Gastro-esophageal reflux disease without esophagitis; M19.90 Unspecified osteoarthritis, unspecified site; D69.6 Thrombocytopenia, unspecified; R19.7 Diarrhea, unspecified; R00.0 Tachycardia, unspecified; R11.2 Nausea with vomiting, unspecified; Z79.52 Long term (current) use of systemic steroids; Z90.49 Acquired absence of other specified parts of digestive tract; Z90.79 Acquired absence of other genital organ(s); Z79.899 Other long term (current) drug therapy; Z82.49 Family history of ischemic heart disease and other diseases of the circulatory system; Z88.8 Allergy status to other drugs, medicaments and biological substances
CPT/HCPCS: 36415; 36430; 70450; 76775; 80048; 80053; 81001; 82330; 82607; 82728; 82746; 83540; 83550; 83690; 83735; 85025; 85027; 85045; 86850; 86900; 86901; 86920; 87040; 87086; 87088; 87186; 93005; 93010; 96361; 96365; 99284; A9270-GY; J0610; J0696; J1642; J1956; J2405; J3475; J3490; J7030; P9016; S0119

== ENCOUNTER 2017-11-27 23:43 | Inpatient (IN) | payer MEDICARE, OTHER ==
[2017-11-27] MEDS ORDERED: NORMAL SALINE 500 ML IV ONE (23:58)
[2017-11-27] MEDS ORDERED: ONDANSETRON 4 MG TAB.RAPDIS PO ONE (23:58)
--- NOTE | 2017-11-28 00:15 | ER Document Report ---
ED General - General Chief Complaint: Nausea/Vomiting Stated Complaint: NAUSEA/VOMITING Time Seen by Provider: 11/27/17 23:49 Notes: Patient is an 82-year-old male presents with complaint of having fever today as well as 2 episodes of vomiting. Is also noticed that his urine has been very cloudy. Last time this happened he had a urinary tract infection admitted to the hospital. He has a history of prostate cancer. 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 Last time he received radiation therapy was in August. He is not receiving chemotherapy. He has a history of chronic anemia and received blood transfusion at [facility] a few days ago. No diarrhea. He denies abdominal pain. No chest pain. No difficulty breathing. No cough. No other complaints at this time. TRAVEL OUTSIDE OF THE [place] IN LAST 30 DAYS: No - Related Data Allergies/Adverse Reactions: metformin Allergy (Verified 10/11/17 16:54) Diarrhea Past Medical History - Social History Smoking Status: Never Smoker Frequency of alcohol use: None Drug Abuse: None Family History: Reviewed & Not Pertinent - Past Medical History Cardiac Medical History: Reports: Hx Hypertension Denies: Hx Atrial Fibrillation, Hx Congestive Heart Failure, Hx Coronary Artery Disease, Hx Heart Attack - hx of chest pain x1, 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 Sterling, Hx Hypercholesterolemia, Hx Peripheral Vascular Disease, Hx Pulmonary Embolism, Hx Heart Murmur Pulmonary Medical History: Reports: Hx Asthma, Hx COPD Denies: Hx Bronchitis, Hx Pneumonia, Hx Respiratory Failure, Hx Sleep Apnea, Hx Tuberculosis Neurological Medical History: Denies: Hx Cerebrovascular Accident, Hx Seizures Endocrine Medical History: Denies: Hx Graves' Disease, Hx Hyperthyroidism, Hx Hypothyroidism Renal/ Medical History: Denies: Hx Benign Prostatic Hyperplasia - hx Prostate cancer, Hx End Stage Renal Disease, Hx Kidney Stones, Hx Peritoneal Dialysis Malignancy Medical History: Denies Hx Lung Cancer, Reports Hx Prostate Cancer GI Medical History: Reports: Hx Gastroesophageal Reflux Disease. Denies: Hx Crohn's Disease, Hx Hepatitis, Hx Hiatal Hernia, Hx Irritable Bowel, Hx Liver Failure, Hx Pancreatitis, Hx Ulcer Musculoskeltal Medical History: Reports Hx Arthritis, Denies Hx Fibromyalgia, Denies Hx Muscular Dystrophy Psychiatric Medical History: Traumatic Medical History: Reports: Hx Fractures - presently pelvic fracture Infectious Medical History: Denies: Hx Hepatitis Past Surgical History: Reports: Hx Cholecystectomy, Hx Orthopedic Surgery, Other - Radical prostatectomy. Denies: Hx Appendectomy, Hx Bowel Surgery, Hx Colostomy, Hx Coronary Artery Bypass Graft, Hx Gastric Bypass Surgery, Hx Herniorrhaphy, Hx Open Heart Surgery, Hx Pacemaker, Hx Tonsillectomy - Immunizations Hx Diphtheria, Pertussis, Tetanus Vaccination: Yes Review of Systems - Review of Systems Notes: My Normal Review Basic REVIEW OF SYSTEMS: CONSTITUTIONAL : Fever EENT: Denies eye, ear, throat, or mouth pain or symptoms. Denies nasal or sinus congestion. CARDIOVASCULAR: Denies chest pain. RESPIRATORY: Denies cough, cold, or chest congestion. Denies shortness of breath, difficulty breathing, or wheezing. GASTROINTESTINAL: Denies abdominal pain. Denies nausea, vomiting, or diarrhea. Denies constipation. Last BM: GENITOURINARY: Cloudy urine MUSCULOSKELETAL: Denies neck or back pain or joint pain or swelling. SKIN: Denies rash or skin lesions. NEUROLOGICAL: Denies altered mental status or loss of consciousness. Denies headache. Denies weakness or paralysis or loss of use of either side. Denies problems with gait or speech. Denies sensory or motor loss. ALL OTHER SYSTEMS REVIEWED AND NEGATIVE. Physical Exam - Vital signs Vitals: Temp Pulse Resp BP Pulse Ox 99.2 F 103 H 15 124/62 94 11/27/17 23:58 11/27/17 23:58 11/27/17 23:58 11/27/17 23:58 11/27/17 23:58 - Notes Notes: General Appearance: Well nourished, alert, cooperative, no acute distress, no obvious discomfort. Well appearing. Vitals: reviewed, See vital signs table. Head: no swelling or tenderness to the head Eyes: PERRL, EOMI, Conjuctiva clear Mouth: No decreasd moisture Throat: No tonsillar inflammation, No airway obstruction, No lymphadenopathy Lungs: No wheezing, No rales, No rhonci, No accessory muscle use, good air exchange bilaterally. Heart: Normal rate, Regular rythm, No murmur, no rub Abdomen: Normal BS, soft, No rigidity, No abdominal tenderness, No guarding, no rebound, no abdominal masses, Extremities: strength 5/5 in all extremities, good pulses in all extremities, no swelling or tenderness in the extremities, no edema. Skin: warm, dry, appropriate color, no rash Neuro: speech clear, oriented x 3, normal affect, responds appropriately to questions. Course - Re-evaluation Re-evalutation: 11/28/17 03:34 It appears the patient has a urinary tract infection. He had similar presentation back in September and had a similar presentation at that time. At that time he actually became septic. Patient currently is tachycardic. Clinically does look well but he has persistent tachycardia and therefore I do think admission is appropriate. I have given him IV fluids. I have placed him on maintenance IV fluids at this time. I did speak with the hospitalist, Dr. Myers, agrees with the patient. I did review the patient's previous urine culture and he is sensitive to Rocephin. I have ordered the Rocephin. I have sent a new urine culture. Patient will be admitted. Dictation of this chart was performed using voice recognition software; therefore, there may be some unintended grammatical errors. - Vital Signs Vital signs: Temp Pulse Resp BP Pulse Ox 99.2 F 103 H 15 124/62 94 11/27/17 23:58 11/27/17 23:58 11/27/17 23:58 11/27/17 23:58 11/27/17 23:58 - Laboratory Result Diagrams: 11/28/17 00:15 11/28/17 00:15 Laboratory results interpreted by me: 11/28/17 11/28/17 11/28/17 00:15 00:15 01:24 RBC 3.09 L Hgb 9.4 L Hct 28.0 L RDW 18.2 H Seg Neuts % (Manual) 82 H Band Neutrophils % 2 L Lymphocytes % (Manual) 3 L Abs Lymphs (Manual) 0.2 L Sodium 133.9 L Glucose 120 H Calcium 7.3 L Direct Bilirubin 0.5 H AST 142 H Alkaline Phosphatase 406 H Total Protein 4.5 L Albumin 2.6 L Urine Protein 30 H Urine Blood SMALL H Ur Leukocyte Esterase LARGE H - EKG Interpretation by Me Additional EKG results interpreted by me: 11/28/17 00:40 EKG is reviewed and interpreted by me. EKG shows sinus tachycardia with rate [address] segment elevation or depression. Occasional PAC. CA interval, QRS duration, QTc intervals are within normal range. Old EKG for comparison is from October 14, 2017. Discharge - Discharge Clinical Impression: Hypocalcemia UTI (urinary tract infection) Qualifiers: Urinary tract infection type: site unspecified Hematuria presence: without hematuria Qualified Code(s): N39.0 - Urinary tract infection, site not specified Condition: Good Disposition: HOME, SELF-CARE Admitting Provider: Hospitalist Unit Admitted: Telemetry
--- NOTE | 2017-11-28 00:37 | RADIOLOGY REPORT (SQ) ---
EXAM DESCRIPTION: XR CHEST 1 VIEW COMPLETED DATE/TME: 11/27/2017 23:58 CLINICAL HISTORY: fever COMPARISON: 01/20/2015 FINDINGS: Single frontal view of the chest. Right IJ Mediport with tip in the SVC. Atherosclerotic calcification of the thoracic aorta. Heart is not enlarged. Leads overlie the chest. No consolidation, pneumothorax, or pleural effusion. No acute osseous abnormalities. Degenerative change of the shoulders and spine. Prior cholecystectomy. IMPRESSION: 1. No acute pulmonary process identified.
[2017-11-28 01:01] LABS: ALANINE AMINOTRANSFERASE 27 U/L (21-72); ALBUMIN 2.6 g/dL (3.5-5.0); ALKALINE PHOSPHATASE 406 U/L (38-126); ANION GAP 11 (5-19); ASPARTATE AMINO TRANSFERASE 142 U/L (17-59); BILIRUBIN,DIRECT 0.5 mg/dL (0.0-0.4); BILIRUBIN,TOTAL 0.9 mg/dL (0.2-1.3); BLOOD UREA NITROGEN 15 mg/dL (7-20); CALCIUM 7.3 mg/dL (8.4-10.2); CARBON DIOXIDE 24 mmol/L (22-30); CHLORIDE 99 mmol/L (98-107); GLUCOSE 120 mg/dL (75-110); POTASSIUM 4.4 mmol/L (3.6-5.0); SODIUM 133.9 mmol/L (137-145); TOTAL PROTEIN 4.5 g/dL (6.3-8.2)
[2017-11-28 01:04] LABS: HEMOGLOBIN 9.4 g/dL (13.5-17.0); MEAN CORPUSCULAR HEMOGLOBIN 30.5 pg (27.0-33.4); MEAN CORPUSCULAR HGB CONC 33.6 g/dL (32.0-36.0); MEAN CORPUSCULAR VOLUME 91 fl (80-97); PLATELET COUNT 152 10^3/uL (150-450); RED BLOOD COUNT 3.09 10^6/uL (4.35-5.55); RED CELL DISTRIBUTION WIDTH 18.2 % (11.5-14.0); WHITE BLOOD COUNT 5.9 10^3/uL (4.0-10.5)
[2017-11-28 01:21] LABS: ABSOLUTE LYMPHOCYTES# (MANUAL) 0.2 10^3/uL (0.5-4.7); ABSOLUTE MONOCYTES # (MANUAL) 0.6 10^3/uL (0.1-1.4); BAND NEUTROPHILS % (MANUAL) 2 % (3-5); BASOPHILS % (MANUAL) 1 % (0-2); EOSINOPHILS % (MANUAL) 2 % (0-6); LYMPHOCYTES % (MANUAL) 3 % (13-45); MONOCYTES % (MANUAL) 10 % (3-13); SEGMENTED NEUTROPHILS % (MAN) 82 % (42-78); TOTAL CELLS COUNTED 100
[2017-11-28 01:22] LABS: OVALOCYTES 1+; SCHISTOCYTES SLIGHT
[2017-11-28 01:23] LABS: ANISOCYTOSIS 1+; POIKILOCYTOSIS 2+; POLYCHROMASIA SLIGHT; TEAR DROP CELLS 1+
[2017-11-28 01:24] LABS: PLATELET COMMENT ADEQUATE
[2017-11-28 01:54] LABS: APPEARANCE,URINE TURBID; BILIRUBIN,URINE NEGATIVE (NEGATIVE); COLOR,URINE AMBER; GLUCOSE, URINE NEGATIVE (NEGATIVE); KETONES,URINE NEGATIVE (NEGATIVE); LEUKOCYTE ESTERASE,URINE LARGE (NEGATIVE); NITRITE,URINE NEGATIVE (NEGATIVE); PROTEIN,URINE 30 mg/dL (NEGATIVE); UROBILINOGEN,URINE NEGATIVE mg/dL (<2.0)
[2017-11-28] MEDS ORDERED: CEFTRIAXONE INJ 1000 MG VIAL IV ONE (03:02)
[2017-11-28] MEDS ORDERED: NORMAL SALINE 1000 ML 500 ML IV ONE (03:06)
[2017-11-28] MEDS ORDERED: IPRATROPIUM/ALBUTEROL 0.5-2.5 MG/3 ML AMPUL NEB PRN (03:35)
[2017-11-28] MEDS ORDERED: ACETAMINOPHEN 325 MG TABLET PO PRN (03:35)
[2017-11-28] MEDS ORDERED: MAG HYDROX/AL HYDROX/SIMETH SUSP 30 ML UDCUP PO PRN (03:35)
[2017-11-28] MEDS ORDERED: NORMAL SALINE 1000 ML 1,000 ML IV SCH (03:45)
[2017-11-28] MEDS ORDERED: HEPARIN SOD (PORCINE) 5,000 UNIT/ML 1 ML SYRINGE SUBCUT SCH (06:00)
[2017-11-28 06:05] LABS: ABSOLUTE LYMPHOCYTES (AUTO) 0.4 10^3/uL (0.5-4.7); ABSOLUTE MONOCYTES (AUTO) 0.8 10^3/uL (0.1-1.4); ABSOLUTE NEUT (AUTO) 4.2 10^3/uL (1.7-8.2); BASOPHILS % (AUTO) 0.5 % (0-2); EOSINOPHILS % (AUTO) 0.6 % (0-6); HEMATOCRIT 26.2 % (37.9-51.0); LYMPHOCYTES % (AUTO) 7.7 % (13-45); MEAN CORPUSCULAR HEMOGLOBIN 30.8 pg (27.0-33.4); MEAN CORPUSCULAR HGB CONC 34.4 g/dL (32.0-36.0); MEAN CORPUSCULAR VOLUME 90 fl (80-97); MONOCYTES % (AUTO) 14.1 % (3-13); PLATELET COUNT 135 10^3/uL (150-450); RED BLOOD COUNT 2.93 10^6/uL (4.35-5.55); RED CELL DISTRIBUTION WIDTH 18.9 % (11.5-14.0); SEGMENTED NEUTROPHILS % (AUTO) 77.1 % (42-78); TOTAL CELLS COUNTED % (AUTO) 100 %; WHITE BLOOD COUNT 5.4 10^3/uL (4.0-10.5)
[2017-11-28] MEDS ORDERED: LACTULOSE SYRUP 20 GM/30 ML UDCUP PO ONE (06:20)
[2017-11-28 06:22] LABS: ANION GAP 9 (5-19); BLOOD UREA NITROGEN 16 mg/dL (7-20); CARBON DIOXIDE 25 mmol/L (22-30); CHLORIDE 101 mmol/L (98-107); GLUCOSE 114 mg/dL (75-110); POTASSIUM 4.9 mmol/L (3.6-5.0); SODIUM 134.5 mmol/L (137-145)
--- NOTE | 2017-11-28 06:28 | PDOC H&P ---
History of Present Illness Admission Date/PCP: 11/28/17 03:52 TOMASA THIBODEAUX, Patient complains of: Generalized weakness, nausea and constipation History of Present Illness: REMIGIO MCGRAW is a 82 year old male with a three-year history of prostate cancer, diffuse metastasis with last chemotherapy October 12, presents with 48 hours of generalized weakness, nausea and constipation. In the emergency room is found to have tachycardia leukocytosis and pyuria. He started on empiric antibiotics for a urinary tract infection referred to the hospitalist for admission. Patient admits recent urinary tract infection 6 weeks ago. Evaluation of the record reveals Proteus mirabilis sensitive to Rocephin. Past Medical History Cardiac Medical History: Reports: Hypertension Denies: Atrial Fibrillation, Congestive Heart Failure, Coronary Artery Disease, Myocardial Infarction - hx of chest pain x1, 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 Sterling, Hyperlipidema, Peripheral Vascular Disease, Pulmonary Embolism, Heart Murmur Pulmonary Medical History: Reports: Asthma, Chronic Obstructive Pulmonary Disease (COPD) Denies: Bronchitis, Pneumonia, Respiratory Failure, Sleep Apnea, Tuberculosis Neurological Medical History: Denies: Seizures Endocrine Medical History: Denies: Hyperthyroidism, Hypothyroidism Renal/ Medical History: Denies: End Stage Renal Disease Malignancy Medical History: Denies: Breast Cancer, Cervical Cancer - n/a, Lung Cancer, Ovarian Cancer - n /a GI Medical History: Reports: Gastroesophageal Reflux Disease Denies: Crohn's Disease, Hepatitis, Hiatal Hernia Musculoskeltal Medical History: Reports: Arthritis Denies: Fibromyalgia Psychiatric Medical History: Hematology: Infectious Medical History: Past Surgical History Past Surgical History: Reports: Cholecystectomy, Orthopedic Surgery, Other - Radical prostatectomy Denies: Appendectomy, Colostomy, Coronary Artery Bypass Graft, Gastric Bypass Surgery, Herniorrhaphy, Pacemaker, Tonsillectomy Social History Information Source: Patient, [facility] Records Lives with: [facility] Smoking Status: Never Smoker Frequency of Alcohol Use: None Hx Recreational Drug Use: No Drugs: None Hx Prescription Drug Abuse: No - Advance Directive Resuscitation Status: Full Code Family History Family History: Hypertension Parental Family History Reviewed: Yes Children Family History Reviewed: Yes Sibling(s) Family History Reviewed.: Yes Medication/Allergy Home Medications: Atorvastatin Calcium [Lipitor 20 mg Tablet] 20 mg PO QHS 10/12/17 Doxazosin Mesylate [Cardura 2 mg Tablet] 2 mg PO BID 10/12/17 Metoprolol Succinate [Toprol Xl 50 mg Tab.sr] 50 mg PO DAILY 10/12/17 Pantoprazole Sodium [Protonix] 40 mg PO DAILY 10/12/17 Prednisone [Deltasone 5 mg Tablet] 5 mg PO QAM 10/12/17 Nitroglycerin [Nitrostat 0.4 mg (1/150 Gr) Tabs 25/Bottle] 1 tab SL Q5MP PRN Diltiazem HCl [Cardizem Cd 120 mg Capsule] 1 cap.sr PO DAILY #30 cap.sr Levofloxacin [Levaquin 500 mg Tablet] 500 mg PO DAILY #5 tablet 10/16/17 Mirtazapine [Remeron] 30 mg PO DAILY #30 tab.rapdis 10/16/17 Allergies/Adverse Reactions: metformin Allergy (Verified 10/11/17 16:54) Diarrhea Review of Systems Constitutional: PRESENT: as per HPI, other - Generalized arthralgia. ABSENT: chills, fever(s), headache(s), weight gain, weight loss Eyes: ABSENT: visual disturbances Ears: ABSENT: hearing changes Cardiovascular: PRESENT: as per HPI. ABSENT: chest pain, dyspnea on exertion, edema, orthropnea, palpitations Respiratory: ABSENT: cough, hemoptysis Gastrointestinal: PRESENT: constipation. ABSENT: abdominal pain, diarrhea, hematemesis, hematochezia, nausea, vomiting Genitourinary: ABSENT: dysuria, hematuria Musculoskeletal: ABSENT: joint swelling Integumentary: ABSENT: rash, wounds Neurological: ABSENT: abnormal gait, abnormal speech, confusion, dizziness, focal weakness, syncope Psychiatric: ABSENT: anxiety, depression, homidical ideation, suicidal ideation Endocrine: ABSENT: cold intolerance, heat intolerance, polydipsia, polyuria Hematologic/Lymphatic: ABSENT: easy bleeding, easy bruising Physical Exam Vital Signs: Temp Pulse Resp BP Pulse Ox 98.3 F 110 H 19 108/64 99 11/28/17 05:02 11/28/17 05:02 11/28/17 05:02 11/28/17 05:02 11/28/17 05:02 Intake & Output 11/26/17 11/27/17 11/28/17 11:59 11:59 11:59 Weight 72.2 kg General appearance: PRESENT: cooperative, mild distress, well-developed, well- nourished Head exam: PRESENT: atraumatic, normocephalic Eye exam: PRESENT: conjunctiva pink, EOMI, PERRLA. ABSENT: scleral icterus Ear exam: PRESENT: normal external ear exam Mouth exam: PRESENT: moist, tongue midline Neck exam: ABSENT: carotid bruit, JVD, lymphadenopathy, thyromegaly Respiratory exam: PRESENT: clear to auscultation nicole. ABSENT: rales, rhonchi, wheezes Cardiovascular exam: PRESENT: tachycardia. ABSENT: diastolic murmur, rubs, systolic murmur Pulses: PRESENT: normal dorsalis pedis pul Vascular exam: PRESENT: normal capillary refill GI/Abdominal exam: PRESENT: hypoactive bowel sounds, normal bowel sounds, soft, tenderness - Left lower quadrant tenderness without guarding. ABSENT: ascites, distended, guarding, mass, organolmegaly, rebound Rectal exam: PRESENT: deferred Extremities exam: PRESENT: full ROM. ABSENT: calf tenderness, clubbing, pedal edema Neurological exam: PRESENT: alert, awake, oriented to person, oriented to place , oriented to time, oriented to situation, CN II-XII grossly intact. ABSENT: motor sensory deficit Psychiatric exam: PRESENT: appropriate affect, normal mood. ABSENT: homicidal ideation, suicidal ideation Skin exam: PRESENT: dry, intact, warm. ABSENT: cyanosis, rash Results Laboratory Results: 11/28/17 05:54 11/28/17 05:54 WBC 5.4 RBC 2.93 L Hgb 9.0 L Hct 26.2 L MCV 90 MCH 30.8 MCHC 34.4 RDW 18.9 H Plt Count 135 L Seg Neutrophils % 77.1 Lymphocytes % 7.7 L Monocytes % 14.1 H Eosinophils % 0.6 Basophils % 0.5 Absolute Neutrophils 4.2 Absolute Lymphocytes 0.4 L Absolute Monocytes 0.8 Absolute Eosinophils 0.0 Absolute Basophils 0.0 Impressions: Chest X-Ray 11/27/17 23:58 IMPRESSION: 1. No acute pulmonary process identified. Assessment & Plan - Diagnosis (1) UTI (urinary tract infection) Qualifiers: Urinary tract infection type: site unspecified Hematuria presence: without hematuria Qualified Code(s): N39.0 - Urinary tract infection, site not specified Is this a current diagnosis for this admission?: Yes Plan: Telemetry floor, Rocephin initiated following review of urine culture 6 weeks ago. Follow-up CBC, blood and urine culture (2) Tachycardia Is this a current diagnosis for this admission?: Yes Plan: Likely secondary to #1, no evidence for volume overload, fluid resuscitation and reevaluation. (3) Constipation Is this a current diagnosis for this admission?: Yes Plan: Fleet enema and lactulose trial (4) Prostate cancer Is this a current diagnosis for this admission?: Yes Plan: Symptomatic management, outpatient follow-up (5) Hypoalbuminemia due to protein-calorie malnutrition Is this a current diagnosis for this admission?: Yes Plan: Secondary to chronic illness, encourage p.o. diet and been a protein (6) Anemia Is this a current diagnosis for this admission?: Yes Plan: Secondary to chronic illness. Supportive care - Time Time Spent: 50 to 70 Minutes - Inpatient Certification Medical Necessity: Need Close Monitoring Due to Risk of Patient Decompensation
[2017-11-28 06:35] LABS: CALCIUM 6.8 mg/dL (8.4-10.2)
[2017-11-28] MEDS ORDERED: OXYCODONE HCL SR 10 MG TABLET PO PRN (08:12)
[2017-11-28] MEDS ORDERED: METOCLOPRAMIDE HCL 10 MG TABLET PO PRN (08:12)
--- NOTE | 2017-11-28 08:32 | PDOC PROGRESS REPORT ---
Subjective Progress Note for:: 11/28/17 Subjective:: The patient states to feel slightly better. He still appears to be slightly confused. According to the patient he was running fever and that is the reason why an assisted living has called an ambulance. He denies any nausea vomiting or diarrhea. He actually complains of being constipated. Reason For Visit: UTI NAUSEA VOMITING SEPSIS Physical Exam Vital Signs: Temp Pulse Resp BP Pulse Ox 98.9 F 107 H 17 128/58 H 98 11/28/17 07:34 11/28/17 07:34 11/28/17 07:34 11/28/17 07:34 11/28/17 07:34 Intake & Output 11/27/17 11/28/17 11/29/17 06:59 06:59 06:59 Intake Total 0 Output Total 0 Balance 0 Weight 72.2 kg General appearance: PRESENT: mild distress Head exam: PRESENT: atraumatic Eye exam: PRESENT: conjunctiva pink Neck exam: PRESENT: carotid bruit. ABSENT: JVD Respiratory exam: PRESENT: clear to auscultation nicole Cardiovascular exam: PRESENT: +S1, +S2, tachycardia GI/Abdominal exam: PRESENT: normal bowel sounds, soft Extremities exam: PRESENT: tenderness Musculoskeletal exam: PRESENT: tenderness Neurological exam: PRESENT: alert, awake Results Laboratory Results: 11/28/17 05:54 11/28/17 05:54 11/28/17 11/28/17 05:54 05:54 WBC 5.4 RBC 2.93 L Hgb 9.0 L Hct 26.2 L MCV 90 MCH 30.8 MCHC 34.4 RDW 18.9 H Plt Count 135 L Seg Neutrophils % 77.1 Lymphocytes % 7.7 L Monocytes % 14.1 H Eosinophils % 0.6 Basophils % 0.5 Absolute Neutrophils 4.2 Absolute Lymphocytes 0.4 L Absolute Monocytes 0.8 Absolute Eosinophils 0.0 Absolute Basophils 0.0 Sodium 134.5 L Potassium 4.9 Chloride 101 Carbon Dioxide 25 Anion Gap 9 BUN 16 Creatinine 0.89 Est GFR ( Amer) > 60 Est GFR (Non-Af Amer) > 60 Glucose 114 H Calcium 6.8 L* Impressions: Chest X-Ray 11/27/17 23:58 IMPRESSION: 1. No acute pulmonary process identified. Assessment & Plan - Diagnosis (1) Constipation Is this a current diagnosis for this admission?: Yes Plan: Most probably secondary to the use of narcotics. Will add some laxatives (2) Hypocalcemia Is this a current diagnosis for this admission?: Yes Plan: Most probably secondary to chemo treatments due to prostate cancer with metastasis to the bone. We will supplement calcium (3) Tachycardia Is this a current diagnosis for this admission?: Yes Plan: Most probably secondary to dehydration and I am not sure about compliance with both Cardizem and metoprolol. Will hydrate and restart the meds (4) UTI (urinary tract infection) Qualifiers: Urinary tract infection type: site unspecified Hematuria presence: without hematuria Qualified Code(s): N39.0 - Urinary tract infection, site not specified Is this a current diagnosis for this admission?: Yes Plan: We will add Levaquin and stop the Rocephin for a possible discharge tomorrow (5) Anemia Is this a current diagnosis for this admission?: Yes Plan: Most probably secondary to prostate cancer and chemotherapy will continue hydration and watch H&H
[2017-11-28] MEDS: OXYCODONE-ACETAMINOPHEN 5-325 MG TABLET PO PRN ×3 (09:59→22:17)
[2017-11-28] MEDS: CALCIUM CARBONATE 250 MG/VITAMIN D3 125 UNIT TABLET PO SCH ×3 (10:00→16:28)
[2017-11-28] MEDS ORDERED: DOXAZOSIN MESYLATE 2 MG TABLET PO SCH (10:00)
[2017-11-28] MEDS: LEVOFLOXACIN 500 MG TABLET PO SCH (10:00)
[2017-11-28] MEDS ORDERED: (PENDING PHARMACY ID) (Multivit-Min/Fa/Lycopen/Lutein [Centrum Silver Men Tablet] 1 EACH) PO SCH (10:00)
[2017-11-28] MEDS ORDERED: CALCIUM CARBONATE PO SCH (10:00)
[2017-11-28] MEDS: DILTIAZEM HCL 120 MG CAP.SR.24H PO SCH (10:00)
[2017-11-28] MEDS ORDERED: VITAMIN D3 PO SCH (10:00)
[2017-11-28] MEDS ORDERED: METOPROLOL SUCCINATE 50 MG TAB.SR.24H PO SCH (10:00)
[2017-11-28] MEDS ORDERED: [UNRECOGNIZED DRUG - OTHER] PO SCH (10:00)
[2017-11-28] MEDS ORDERED: DILTIAZEM HCL 120 MG CAP.SR.24H PO SCH (10:00)
[2017-11-28] MEDS ORDERED: CEFTRIAXONE 1 GM/D5W RTU 1 GM/50 ML RTUPB IV SCH (10:00)
[2017-11-28] MEDS: DOCUSATE SODIUM 100 MG CAPSULE PO SCH ×2 (10:01→16:32)
[2017-11-28] MEDS: MULTIVITAMIN TABLET PO SCH (10:01)
[2017-11-28] MEDS: LANSOPRAZOLE 30 MG TAB.RAP.DR PO SCH (10:01)
[2017-11-28] MEDS: NORMAL SALINE 1000 ML 1,000 ML IV PRN ×2 (10:03→16:32)
[2017-11-28] MEDS: NA PHOS,M-B/NA PHOS,DI-BA (ADULT) 133 ML ENEMA PR SCH ×2 (13:17→21:29)
[2017-11-28] MEDS: GABAPENTIN 300 MG CAPSULE PO SCH ×2 (13:44→21:28)
[2017-11-28] MEDS ORDERED: METOPROLOL SUCCINATE 50 MG TAB.SR.24H PO ONE (16:15)
--- NOTE | 2017-11-28 20:33 | EKG REPORT ---
SEVERITY:- ABNORMAL ECG - SINUS RHYTHM MULTIPLE ATRIAL PREMATURE COMPLEXES : Confirmed by: Mindy Garcia MD 28-Nov-2017 20:32:16
--- NOTE | 2017-11-28 20:34 | EKG REPORT ---
SEVERITY:- OTHERWISE NORMAL ECG - SINUS TACHYCARDIA : Confirmed by: Mindy Garcia MD 28-Nov-2017 20:33:12
[2017-11-28] MEDS ORDERED: ATORVASTATIN CALCIUM 20 MG TABLET PO SCH (22:00)
[2017-11-28] MEDS ORDERED: MIRTAZAPINE 15 MG TABLET PO SCH (22:00)
[2017-11-29 04:37] LABS: ABSOLUTE LYMPHOCYTES (AUTO) 0.3 10^3/uL (0.5-4.7); ABSOLUTE MONOCYTES (AUTO) 0.6 10^3/uL (0.1-1.4); ABSOLUTE NEUT (AUTO) 3.4 10^3/uL (1.7-8.2); BASOPHILS % (AUTO) 0.3 % (0-2); EOSINOPHILS % (AUTO) 0.5 % (0-6); HEMATOCRIT 24.6 % (37.9-51.0); HEMOGLOBIN 8.4 g/dL (13.5-17.0); LYMPHOCYTES % (AUTO) 6.2 % (13-45); MEAN CORPUSCULAR HEMOGLOBIN 30.4 pg (27.0-33.4); MEAN CORPUSCULAR VOLUME 89 fl (80-97); MONOCYTES % (AUTO) 13.8 % (3-13); PLATELET COUNT 133 10^3/uL (150-450); RED BLOOD COUNT 2.75 10^6/uL (4.35-5.55); RED CELL DISTRIBUTION WIDTH 18.3 % (11.5-14.0); SEGMENTED NEUTROPHILS % (AUTO) 79.2 % (42-78); TOTAL CELLS COUNTED % (AUTO) 100 %; WHITE BLOOD COUNT 4.3 10^3/uL (4.0-10.5)
[2017-11-29 04:46] LABS: ALANINE AMINOTRANSFERASE 22 U/L (21-72); ALBUMIN 2.3 g/dL (3.5-5.0); ALKALINE PHOSPHATASE 323 U/L (38-126); ANION GAP 9 (5-19); ASPARTATE AMINO TRANSFERASE 68 U/L (17-59); BILIRUBIN,DIRECT 0.5 mg/dL (0.0-0.4); BILIRUBIN,TOTAL 0.6 mg/dL (0.2-1.3); BLOOD UREA NITROGEN 14 mg/dL (7-20); CARBON DIOXIDE 22 mmol/L (22-30); CHLORIDE 101 mmol/L (98-107); GLUCOSE 93 mg/dL (75-110); SODIUM 132.1 mmol/L (137-145); TOTAL PROTEIN 4.4 g/dL (6.3-8.2)
[2017-11-29 04:54] LABS: CALCIUM 6.7 mg/dL (8.4-10.2)
[2017-11-29] MEDS: GABAPENTIN 300 MG CAPSULE PO SCH (05:14)
[2017-11-29] MEDS ORDERED: CALCIUM GLUCONATE 1,000 MG in DEXTROSE 5%-WATER 50 ML IV ONE (05:15)
[2017-11-29] MEDS ORDERED: CEFTRIAXONE SODIUM 1,000 MG in DEXTROSE 5%-WATER 50 ML IV SCH (06:00)
[2017-11-29] MEDS ORDERED: CALCIUM GLUCONATE 1000 MG/10 ML INJ IV ONE (06:05)
--- NOTE | 2017-11-29 08:43 | PDOC DISCHARGE SUMMARY ---
General - Admit/Disc Date/PCP Admission Date/Primary Care Provider: 11/28/17 03:52 TOMASA THIBODEAUX, Discharge Date: 11/29/17 - Discharge Diagnosis (1) Constipation Is this a current diagnosis for this admission?: Yes Summary: Might be related to narcotics and constipation (2) Hypocalcemia Is this a current diagnosis for this admission?: Yes Summary: Corrected calcium was 8. Supplemented with calcium gluconate. (3) Tachycardia Is this a current diagnosis for this admission?: Yes Summary: Resolved with decrease in fever and control of the urinary tract infection and restarting all his medication (4) UTI (urinary tract infection) Is this a current diagnosis for this admission?: Yes Summary: Improved symptomatology (5) Anemia Is this a current diagnosis for this admission?: Yes Summary: H&H is stable posttransfusion. There is some dilution because of IV fluids for patient being dehydrated - Additional Information Resuscitation Status: Full Code Discharge Diet: Cardiac Discharge Activity: Activity As Tolerated Prescriptions: Levofloxacin [Levaquin 500 mg Tablet] 500 mg PO DAILY #5 tablet Home Medications: Allopurinol [Zyloprim 100 mg Tablet] 100 mg PO QHS 11/28/17 Atorvastatin Calcium [Lipitor 20 mg Tablet] 20 mg PO DAILY 11/28/17 Calcium Carbonate/Vitamin D3 [Caltrate 600 Plus D3 Tablet] 3 tab PO DAILY Diltiazem HCl [Diltiazem 24Hr ER] 120 mg PO DAILY 11/28/17 Doxazosin Mesylate [Cardura 2 mg Tablet] 2 mg PO Q12 11/28/17 Gabapentin [Neurontin 300 mg Capsule] 300 mg PO Q8 11/28/17 Metoclopramide HCl [Reglan 10 mg Tablet] 10 mg PO Q8HP PRN 11/28/17 Metoprolol Succinate [Toprol Xl 50 mg Tab.sr] 50 mg PO QHS 11/28/17 Multivit-Min/FA/Lycopen/Lutein [Centrum Silver Men Tablet] 1 each PO DAILY 11/28 Oxycodone HCl [Oxycontin Sr 10 mg Tablet] 10 mg PO Q12HP PRN 11/28/17 Oxycodone HCl/Acetaminophen [Percocet 5-325 mg Tablet] 1 tab PO Q6HP PRN Pantoprazole Sodium [Protonix] 40 mg PO QHS 11/28/17 Levofloxacin [Levaquin 500 mg Tablet] 500 mg PO DAILY #5 tablet 11/29/17 History of Present Illness History of Present Illness: REMIGIO MCGRAW is a 82 year old male Hospital Course Hospital Course: The patient was admitted with dehydration and urinary tract infection. He is status post transfusion in [place] by his oncologist. He did quite well with IV fluids and antibiotics. His symptomatology has improved. His fever has resolved. His tachycardia has resolved with hydration and antibiotics. Physical Exam Vital Signs: Temp Pulse Resp BP Pulse Ox 99.4 F 111 H 16 128/56 H 97 11/29/17 07:42 11/29/17 08:05 11/29/17 08:05 11/29/17 07:42 11/29/17 08:05 Intake & Output 11/28/17 11/29/17 11/30/17 06:59 06:59 06:59 Intake Total 531 2150 Output Total 0 125 Balance 531 2025 Weight 72.2 kg 74.8 kg General appearance: PRESENT: no acute distress Head exam: PRESENT: atraumatic Eye exam: PRESENT: conjunctiva pink Mouth exam: PRESENT: dry mucosa Neck exam: PRESENT: carotid bruit. ABSENT: JVD Respiratory exam: PRESENT: clear to auscultation nicole Cardiovascular exam: PRESENT: irregular rhythm, +S1, +S2 GI/Abdominal exam: PRESENT: normal bowel sounds, soft Extremities exam: PRESENT: tenderness Musculoskeletal exam: PRESENT: tenderness Neurological exam: PRESENT: alert, awake Results Laboratory Results: 11/29/17 04:04 11/29/17 04:04 11/29/17 11/29/17 04:04 04:04 WBC 4.3 RBC 2.75 L Hgb 8.4 L Hct 24.6 L MCV 89 MCH 30.4 MCHC 34.0 RDW 18.3 H Plt Count 133 L Seg Neutrophils % 79.2 H Lymphocytes % 6.2 L Monocytes % 13.8 H Eosinophils % 0.5 Basophils % 0.3 Absolute Neutrophils 3.4 Absolute Lymphocytes 0.3 L Absolute Monocytes 0.6 Absolute Eosinophils 0.0 Absolute Basophils 0.0 Sodium 132.1 L Potassium 4.0 Chloride 101 Carbon Dioxide 22 Anion Gap 9 BUN 14 Creatinine 0.84 Est GFR ( Amer) > 60 Est GFR (Non-Af Amer) > 60 Glucose 93 Calcium 6.7 L* Total Bilirubin 0.6 AST 68 H ALT 22 Alkaline Phosphatase 323 H Total Protein 4.4 L Albumin 2.3 L Impressions: Chest X-Ray 11/27/17 23:58 IMPRESSION: 1. No acute pulmonary process identified. Qualifiers - * PATIENT BEING DISCHARGED WITH ANY OF THE FOLLOWING DIAGNOSIS: No
[2017-11-29] MEDS: MULTIVITAMIN TABLET PO SCH (09:18)
[2017-11-29] MEDS: DILTIAZEM HCL 120 MG CAP.SR.24H PO SCH (09:18)
[2017-11-29] MEDS: CALCIUM CARBONATE 250 MG/VITAMIN D3 125 UNIT TABLET PO SCH (09:18)
[2017-11-29] MEDS: DOCUSATE SODIUM 100 MG CAPSULE PO SCH (09:19)
[2017-11-29] MEDS: LEVOFLOXACIN 500 MG TABLET PO SCH (09:19)
[2017-11-29] MEDS: LANSOPRAZOLE 30 MG TAB.RAP.DR PO SCH (09:19)
[2017-11-29 10:22] VITALS: BP 124/62
[2017-11-29] MEDS ORDERED: METOPROLOL SUCCINATE 50 MG TAB.SR.24H PO SCH (22:00)
== END 2017-11-29 11:00 | disposition home health service (06) | DRG 690 ==
LOC: ER 23:43 → EH 11-28 03:52 → 3S 11-28 04:56
PROVIDERS: ADMIT Internal Medicine; ATTEND Internal Medicine
DX: N39.0 Urinary tract infection, site not specified (principal); E46 Unspecified protein-calorie malnutrition; E83.51 Hypocalcemia; E86.0 Dehydration; C61 Malignant neoplasm of prostate; I10 Essential (primary) hypertension; D64.9 Anemia, unspecified; J44.9 Chronic obstructive pulmonary disease, unspecified; E88.09 Other disorders of plasma-protein metabolism, not elsewhere classified; R00.0 Tachycardia, unspecified; K21.9 Gastro-esophageal reflux disease without esophagitis; K59.00 Constipation, unspecified; B96.5 Pseudomonas (aeruginosa) (mallei) (pseudomallei) as the cause of diseases classified elsewhere; Z68.23 Body mass index [BMI] 23.0-23.9, adult; Z79.2 Long term (current) use of antibiotics; Z79.52 Long term (current) use of systemic steroids; Z79.899 Other long term (current) drug therapy
CPT/HCPCS: 36415; 71045; 80048; 80053; 81001; 83735; 83880; 84484; 85025; 87040; 87086; 87088; 87186; 93005; 93010; 96361; 96365; 99285; J0610; J0696; J1644; J7030; J7040; S0119

== ENCOUNTER 2017-12-01 13:59 | Emergency (ER) | payer MEDICARE, OTHER ==
[2017-12-01] MEDS ORDERED: NORMAL SALINE 500 ML IV ONE (14:16)
--- NOTE | 2017-12-01 14:21 | ER Document Report ---
ED Fall - General Chief Complaint: Fall Stated Complaint: FALL/HEAD INJURY Time Seen by Provider: 12/01/17 14:05 Mode of Arrival: Medic Information source: Patient Notes: 82-year-old male brought to emergency department by EMS status post fall. Patient states that he was sitting on the toilet when he went to stand up he felt lightheaded and fell to the ground. Patient hit the back of his head. Patient denies any loss of consciousness. He denies being on any anticoagulants. Patient does have an abrasion to the back of his head per EMS. Patient denies any vision changes, speech changes, numbness, tingling, weakness, chest pain, shortness of breath. Patient does have a history of atrial fibrillation. Patient was just discharged from the hospital a few days ago for sepsis secondary to UTI. Patient currently on levofloxacin. Patient does have a history of prostate cancer with mets to his spine. His last radiation therapy was in August. He is not undergoing chemotherapy. His last chemotherapy was October 12, 2017. TRAVEL OUTSIDE OF THE [place] IN LAST 30 DAYS: No - HPI Occurred: Just prior to arrival Where: Home Context: Fell from sitting Associated symptoms: None Location of injury/pain: Other - head Quality of pain: Achy Severity: Mild Prehospital interventions: C-collar - Related data Allergies/Adverse Reactions: metformin Allergy (Verified 10/11/17 16:54) Diarrhea Past Medical History - General Information source: Patient - Social History Smoking Status: Former Smoker Family History: Hypertension - Past Medical History Cardiac Medical History: Reports: Hx Hypertension Denies: Hx Atrial Fibrillation, Hx Congestive Heart Failure, Hx Coronary Artery Disease, Hx Heart Attack - hx of chest pain x1, 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 Sterling, Hx Hypercholesterolemia, Hx Peripheral Vascular Disease, Hx Pulmonary Embolism, Hx Heart Murmur Pulmonary Medical History: Reports: Hx Asthma, Hx COPD Denies: Hx Bronchitis, Hx Pneumonia, Hx Respiratory Failure, Hx Sleep Apnea, Hx Tuberculosis Neurological Medical History: Denies: Hx Cerebrovascular Accident, Hx Seizures Endocrine Medical History: Denies: Hx Graves' Disease, Hx Hyperthyroidism, Hx Hypothyroidism Renal/ Medical History: Denies: Hx Benign Prostatic Hyperplasia - hx Prostate cancer, Hx End Stage Renal Disease, Hx Kidney Stones, Hx Peritoneal Dialysis Malignancy Medical History: Denies Hx Lung Cancer, Reports Hx Prostate Cancer GI Medical History: Reports: Hx Gastroesophageal Reflux Disease. Denies: Hx Crohn's Disease, Hx Hepatitis, Hx Hiatal Hernia, Hx Irritable Bowel, Hx Liver Failure, Hx Pancreatitis, Hx Ulcer Musculoskeletal Medical History: Reports Hx Arthritis, Denies Hx Fibromyalgia, Denies Hx Muscular Dystrophy Psychiatric Medical History: Traumatic Medical History: Reports: Hx Fractures - presently pelvic fracture Infectious Medical History: Denies: Hx Hepatitis Past Surgical History: Reports: Hx Cholecystectomy, Hx Orthopedic Surgery, Other - Radical prostatectomy. Denies: Hx Appendectomy, Hx Bowel Surgery, Hx Colostomy, Hx Coronary Artery Bypass Graft, Hx Gastric Bypass Surgery, Hx Herniorrhaphy, Hx Open Heart Surgery, Hx Pacemaker, Hx Tonsillectomy - Immunizations Hx Diphtheria, Pertussis, Tetanus Vaccination: Yes Review of Systems - Review of Systems Constitutional: No symptoms reported EENT: No symptoms reported Cardiovascular: No symptoms reported Respiratory: No symptoms reported Gastrointestinal: No symptoms reported Genitourinary: No symptoms reported Male Genitourinary: No symptoms reported Skin: Lesions Hematologic/Lymphatic: No symptoms reported Neurological/Psychological: No symptoms reported -: Yes All other systems reviewed and negative Physical Exam - Vital signs Vitals: Temp Pulse Resp BP Pulse Ox 97.8 F 109 H 19 123/67 94 12/01/17 14:07 12/01/17 14:07 12/01/17 14:07 12/01/17 14:07 12/01/17 14:07 Interpretation: Normal, Tachycardic - General General appearance: Appears well, Alert Notes: PHYSICAL EXAMINATION: GENERAL: Well-appearing, well-nourished and in no acute distress. HEAD: Abrasion to posterior occiput EYES: Pupils equal round and reactive to light, extraocular movements intact, sclera anicteric, conjunctiva are normal. ENT: Nares patent, oropharynx clear without exudates. Moist mucous membranes. NECK: C-collar in place. LUNGS: Breath sounds clear to auscultation bilaterally and equal. No wheezes rales or rhonchi. HEART: Regular rate and rhythm without murmurs ABDOMEN: Soft, nontender, nondistended abdomen. No guarding, no rebound. No masses appreciated. Musculoskeletal: Normal range of motion, no pitting or edema. No cyanosis. NEUROLOGICAL: Cranial nerves grossly intact. Normal speech. Normal sensory, motor exams. GCS 14. Patient slightly confused. PSYCH: Normal mood, normal affect. SKIN: Warm, Dry, normal turgor, abrasion to the R occiput Course - Re-evaluation Re-evalutation: 12/01/17 14:20 EKG, ventricular rate 116, [place] interval 164, QRS duration 72, QTc 451, sinus tachycardia, no ischemic changes. 12/01/17 15:23 I contacted [facility] as the head CT shows epidural hemorrhages. I spoke with Dr. Hernandez, trauma surgery. She accepts transfer of the patient. Patient currently stable. Will fly patient. 12/01/17 15:49 Labs obtained. Hemoglobin 7.9 today. )n 11/28/17 hemoglobin was 9.0. On 11/29/17 hemoglobin was 8.4. Platelets and sodium chronically low. 12/01/17 15:55 Flight here to transfer patient. He's currently stable. - Vital Signs Vital signs: Temp Pulse Resp BP Pulse Ox 97.8 F 109 H 19 123/67 94 12/01/17 15:43 12/01/17 14:07 12/01/17 15:43 12/01/17 14:07 12/01/17 15:43 - Laboratory Result Diagrams: 12/01/17 15:02 12/01/17 15:02 Laboratory results interpreted by me: 12/01/17 12/01/17 15:02 15:02 RBC 2.56 L Hgb 7.9 L Hct 23.0 L RDW 18.7 H Plt Count 131 L Seg Neuts % (Manual) 84 H Lymphocytes % (Manual) 4 L Abs Lymphs (Manual) 0.2 L Sodium 133.9 L Glucose 127 H Calcium 6.8 L* Alkaline Phosphatase 289 H Total Protein 4.5 L Albumin 2.2 L Discharge - Discharge Clinical Impression: Fall Qualifiers: Encounter type: initial encounter Qualified Code(s): W19.XXXA - Unspecified fall, initial encounter Epidural hemorrhage Qualifiers: Encounter type: initial encounter Loss of consciousness presence/duration: without LOC Qualified Code(s): S06.4X0A - Epidural hemorrhage without loss of consciousness, initial encounter Condition: Stable Disposition: [facility] Referrals: TOMASA THIBODEAUX MD [Primary Care Provider] - Follow up as needed
--- NOTE | 2017-12-01 14:57 | RADIOLOGY REPORT (SQ) ---
EXAM DESCRIPTION: CT HEAD WITHOUT COMPLETED DATE/TIME: 12/01/2017 2:32 pm REASON FOR STUDY: trauma COMPARISON: 10/12/2017 TECHNIQUE: Axial images acquired through the brain without intravenous contrast. Images reviewed wi th bone, brain and subdural windows. Additional sagittal and coronal reconstructions were generated. Images stored on PACS. All CT scanners at this facility use dose modulation, iterative reconstruction, and/or weight based d osing when appropriate to reduce radiation dose to as low as reasonably achievable (ALARA). [facility]: Dose Right [facility]: CareDose [facility]: Dose Right [facility]: Teradose 4D [facility]: Smart GridMarkets RADIATION DOSE: CT Rad equipment meets quality standard of care and radiation dose reduction techniq ues were employed. CTDIvol: 53.2 mGy. DLP: 1017 mGy-cm.mGy. LIMITATIONS: None. FINDINGS: VENTRICLES: Prominent. CEREBRUM: No masses. No hemorrhage. No midline shift. Few scattered areas of low density in the wh ite matter most likely due to chronic micro-vascular ischemic change. No evidence for acute infarcti on. CEREBELLUM: No masses. No hemorrhage. No alteration of density. No evidence for acute infarction. EXTRAAXIAL SPACES: A subtle relatively hyper dense collection is seen adjacent to the inner table of the calvarium in the left parietal region (axial image 15, coronal reformat 42) which has the configu ration of a very small epidural hemorrhage. An additional similar appearing focus is seen on axial i mage 24 and coronal reformat 49. Background of mild age-related involutional change. ORBITS AND GLOBE: No intra- or extraconal masses. Normal contour of globe without masses. CALVARIUM: No fracture. PARANASAL SINUSES: Re- demonstration of complete opacification of the left maxillary sinus and spheno id compartments. Scattered ethmoid air cell opacities. Fluid level within the left frontal sinus an d mucosal thickening within both frontal sinuses. SOFT TISSUES: Right parietal scalp injury. OTHER: No other significant finding. IMPRESSION: 1. Right parietal scalp injury with 2 small left parietal epidural hemorrhages. No par enchymal hemorrhage. 2. Mild age-related involutional and chronic microvascular ischemic changes. 3. Re- demonstration of marked pansinusitis disease. EVIDENCE OF ACUTE STROKE: NO. COMMENT: This report was called to the emergency dishroom attendant who relayed the findings to JUSTINE CACERES MD (unavailable due to involvement in a trauma case) at14:50 on 12/01/2017. TECHNICAL DOCUMENTATION: JOB ID: [id number] Quality ID # [id number]: Final reports with documentation of one or more dose reduction techniques (e.g., Au tomated exposure control, adjustment of the mA and/or kV according to patient size, use of iterative reconstruction technique) 2010 [employer]- All Rights Reserved Reading location - IP/workstation name: [email or web address]
--- NOTE | 2017-12-01 15:01 | RADIOLOGY REPORT (SQ) ---
EXAM DESCRIPTION: CT CERVICAL SPINE WITHOUT COMPLETED DATE/TIME: 12/01/2017 2:32 pm REASON FOR STUDY: trauma COMPARISON: MR head and neck 06/12/[address] pelvis 06/14/2016 TECHNIQUE: Axial images acquired through the cervical spine without intravenous contrast. Images re viewed with lung, soft tissue and bone windows. Reconstructed coronal and sagittal MPR images review ed. Images stored on PACS. All CT scanners at this facility use dose modulation, iterative reconstruction, and/or weight based d osing when appropriate to reduce radiation dose to as low as reasonably achievable (ALARA). [facility]: Dose Right [facility]: CareDose [facility]: Dose Right [facility]: Teradose 4D [facility]: Smart [employer] RADIATION DOSE: CT Rad equipment meets quality standard of care and radiation dose reduction techniq ues were employed. CTDIvol: 18.3 mGy. DLP: 397 mGy-cm. mGy. LIMITATIONS: None. FINDINGS: ALIGNMENT: Anatomic. MINERALIZATION: Diffusely infiltrative process demonstrating predominantly sclerotic foci throughout the cervical spine, most significantly involving the C5 and C6 vertebral bodies ; this correlates to findings on comparison MRI. VERTEBRAL BODIES: No fractures or dislocation. DISCS: Multilevel disc space narrowing with osteophytes. FACETS, LATERAL MASSES, POSTERIOR ELEMENTS: Facet arthropathy. No fractures. No dislocation. No ac sana findings. HARDWARE: None in the spine. VISUALIZED RIBS: No fractures. LUNG APICES AND SOFT TISSUES: No significant or acute findings. OTHER: No other significant finding. IMPRESSION: No evidence of acute osseous injury. Background of metastatic and degenerative changes similar to that seen on comparison MR imaging. TECHNICAL DOCUMENTATION: JOB ID: [id number] Quality ID # [id number]: Final reports with documentation of one or more dose reduction techniques (e.g., Au tomated exposure control, adjustment of the mA and/or kV according to patient size, use of iterative reconstruction technique) 2010 [employer]- All Rights Reserved Reading location - IP/workstation name: [email or web address]
--- NOTE | 2017-12-01 15:03 | RADIOLOGY REPORT (SQ) ---
EXAM DESCRIPTION: CHEST SINGLE VIEW COMPLETED DATE/TIME: 12/01/2017 2:33 pm REASON FOR STUDY: fall COMPARISON: 11/28/2017 EXAM PARAMETERS: NUMBER OF VIEWS: One view. TECHNIQUE: Single frontal radiographic view of the chest acquired. RADIATION DOSE: NA LIMITATIONS: None. FINDINGS: LUNGS AND PLEURA: No opacities, masses or pneumothorax. No pleural effusion. MEDIASTINUM AND HILAR STRUCTURES: No masses. Contour normal. HEART AND VASCULAR STRUCTURES: Heart normal in size. Normal vasculature. BONES: Re- demonstration of diffusely infiltrative metastatic disease. No evidence of fracture. HARDWARE: Right chest wall Port-A-Cath and right upper quadrant cholecystectomy clips. OTHER: No other significant finding. IMPRESSION: No evidence of acute osseous injury or pneumothorax. Stable radiographic appearance of the chest. TECHNICAL DOCUMENTATION: JOB ID: [id number] [employer]- All Rights Reserved Reading location - IP/workstation name: [email or web address]
[2017-12-01 15:15] LABS: MEAN CORPUSCULAR HEMOGLOBIN 30.8 pg (27.0-33.4); MEAN CORPUSCULAR HGB CONC 34.4 g/dL (32.0-36.0); MEAN CORPUSCULAR VOLUME 90 fl (80-97); PLATELET COUNT 131 10^3/uL (150-450); RED BLOOD COUNT 2.56 10^6/uL (4.35-5.55); RED CELL DISTRIBUTION WIDTH 18.7 % (11.5-14.0); WHITE BLOOD COUNT 5.5 10^3/uL (4.0-10.5)
[2017-12-01 15:31] LABS: ALANINE AMINOTRANSFERASE 28 U/L (21-72); ALBUMIN 2.2 g/dL (3.5-5.0); ALKALINE PHOSPHATASE 289 U/L (38-126); ANION GAP 8 (5-19); ASPARTATE AMINO TRANSFERASE 58 U/L (17-59); BILIRUBIN,DIRECT 0.3 mg/dL (0.0-0.4); BILIRUBIN,TOTAL 0.3 mg/dL (0.2-1.3); BLOOD UREA NITROGEN 12 mg/dL (7-20); CARBON DIOXIDE 23 mmol/L (22-30); CHLORIDE 103 mmol/L (98-107); GLUCOSE 127 mg/dL (75-110); POTASSIUM 4.3 mmol/L (3.6-5.0); SODIUM 133.9 mmol/L (137-145); TOTAL PROTEIN 4.5 g/dL (6.3-8.2)
[2017-12-01 15:41] LABS: ABSOLUTE LYMPHOCYTES# (MANUAL) 0.2 10^3/uL (0.5-4.7); ABSOLUTE MONOCYTES # (MANUAL) 0.3 10^3/uL (0.1-1.4); ABSOLUTE NEUTROPHILS# (MANUAL) 4.9 10^3/uL (1.7-8.2); BAND NEUTROPHILS % (MANUAL) 5 % (3-5); BASOPHILS % (MANUAL) 0 % (0-2); EOSINOPHILS % (MANUAL) 1 % (0-6); LYMPHOCYTES % (MANUAL) 4 % (13-45); MONOCYTES % (MANUAL) 6 % (3-13); SEGMENTED NEUTROPHILS % (MAN) 84 % (42-78); TOTAL CELLS COUNTED 100
[2017-12-01 15:42] LABS: ANISOCYTOSIS 2+; OVALOCYTES SLIGHT; PLATELET COMMENT DECREASED; POIKILOCYTOSIS 1+; POLYCHROMASIA SLIGHT; TEAR DROP CELLS SLIGHT; TOXIC GRANULATION SLIGHT
[2017-12-01 15:44] LABS: HEMOGLOBIN 7.9 g/dL (13.5-17.0)
[2017-12-01 15:47] LABS: CALCIUM 6.8 mg/dL (8.4-10.2)
[2017-12-01 15:58] VITALS: BP 120/71
--- NOTE | 2017-12-02 00:49 | EKG REPORT ---
SEVERITY:- ABNORMAL ECG - SINUS TACHYCARDIA PAIRED VENTRICULAR PREMATURE COMPLEXES BORDERLINE T ABNORMALITIES, INFERIOR LEADS : Confirmed by: Mindy Garcia MD 02-Dec-2017 00:48:45
== END 2017-12-01 16:11 | disposition short-term general hospital (02) ==
LOC: ER 13:59
DX: S06.4X0A Epidural hemorrhage without loss of consciousness, initial encounter (principal); S00.01XA Abrasion of scalp, initial encounter; R42 Dizziness and giddiness; W19.XXXA Unspecified fall, initial encounter; Z85.46 Personal history of malignant neoplasm of prostate; Z85.89 Personal history of malignant neoplasm of other organs and systems; I10 Essential (primary) hypertension; Z87.891 Personal history of nicotine dependence; J44.9 Chronic obstructive pulmonary disease, unspecified
CPT/HCPCS: 93005; 36591; 99285; 36415; 85025; 80053; 84484; 71045; 70450; 72125; 93010; J7040

== ENCOUNTER 2017-12-08 09:29 | Emergency (ER) | payer MEDICARE, OTHER ==
--- NOTE | 2017-12-08 10:32 | ER Document Report ---
ED Medical Screen (RME) - General Chief Complaint: Redness of Eye Stated Complaint: EYE PAIN Time Seen by Provider: 12/08/17 10:17 Mode of Arrival: Medic Information source: Patient Notes: Patient is an 82-year-old male who presents with left eye swelling and redness. Patient presents from [facility] via EMS, EMS reports that long-term started using some type of eyedrops on the eye yesterday however it has not gotten any better. Patient denies any pain to the eye. Patient was seen recently for a head trauma and was sent to provided with multiple epidural hemorrhages and was subsequently sent to violent for monitoring. Unknown if there is any new trauma. Erythema and edema noted to the sclera. I have greeted and performed a rapid initial assessment of this patient. A comprehensive ED assessment and evaluation of the patient, analysis of test results and completion of the medical decision making process will be conducted by additional ED providers. Dictation of this chart was performed using voice recognition software; therefore, there may be some unintended grammatical errors. TRAVEL OUTSIDE OF THE [place] 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 Sterling, Hx Hypercholesterolemia, Hx Peripheral Vascular Disease, Hx Pulmonary Embolism, Hx Heart Murmur Pulmonary Medical History: Reports: Hx Asthma, Hx COPD Denies: Hx Bronchitis, Hx Pneumonia, Hx Respiratory Failure, Hx Sleep Apnea, Hx Tuberculosis Neurological Medical History: Denies: Hx Cerebrovascular Accident, Hx Seizures Endocrine Medical History: Denies: Hx Graves' Disease, Hx Hyperthyroidism, Hx Hypothyroidism Renal/ Medical History: Denies: Hx Benign Prostatic Hyperplasia - hx Prostate cancer, Hx End Stage Renal Disease, Hx Kidney Stones, Hx Peritoneal Dialysis Malignancy Medical History: Denies Hx Lung Cancer, Reports Hx Prostate Cancer GI Medical History: Reports: Hx Gastroesophageal Reflux Disease. Denies: Hx Crohn's Disease, Hx Hepatitis, Hx Hiatal Hernia, Hx Irritable Bowel, Hx Liver Failure, Hx Pancreatitis, Hx Ulcer Musculoskeltal Medical History: Reports Hx Arthritis, Denies Hx Fibromyalgia, Denies Hx Muscular Dystrophy Psychiatric Medical History: Traumatic Medical History: Reports: Hx Fractures - presently pelvic fracture Infectious Medical History: Denies: Hx Hepatitis Past Surgical History: Reports: Hx Cholecystectomy, Hx Orthopedic Surgery, Other - Radical prostatectomy. Denies: Hx Appendectomy, Hx Bowel Surgery, Hx Colostomy, Hx Coronary Artery Bypass Graft, Hx Gastric Bypass Surgery, Hx Herniorrhaphy, Hx Open Heart Surgery, Hx Pacemaker, Hx Tonsillectomy - Immunizations Hx Diphtheria, Pertussis, Tetanus Vaccination: Yes History of Influenza Vaccine for 02/2017 - 07/2017 Season: Refused Physical Exam - Vital signs Vitals: Temp Pulse Resp BP Pulse Ox 98.1 F 120 H 20 105/79 97 12/08/17 09:35 12/08/17 09:35 12/08/17 09:35 12/08/17 09:35 12/08/17 09:35 Course - Vital Signs Vital signs: Temp Pulse Resp BP Pulse Ox 98.1 F 120 H 20 105/79 97 12/08/17 09:35 12/08/17 09:35 12/08/17 09:35 12/08/17 09:35 12/08/17 09:35 Doctor's Discharge - Discharge Referrals: TOMASA THIBODEAUX MD [Primary Care Provider] - Follow up as needed
--- NOTE | 2017-12-08 11:57 | ER Document Report ---
ED Eye Complaint - General Chief Complaint: Redness of Eye Stated Complaint: EYE PAIN Time Seen by Provider: 12/08/17 10:17 Mode of Arrival: Medic Notes: This is an 82-year-old male to the emergency department chief complaint of redness and swelling to the left eye. No fever. Patient had an unfortunate fall approximately 3 weeks ago. Was hospitalized for intracranial bleeding. Recovered without incident. Not on any blood thinners. Began having some pain and redness in the left eye several days ago. Was started on some antibiotic ointment. Redness and swelling around the eye seems to be getting worse. Referred here for further evaluation. Patient denies any symptoms at this time. Denies any pain in the eye. No pain with eye movement. TRAVEL OUTSIDE OF THE [place] IN LAST 30 DAYS: No - HPI Onset: Yesterday Eye location: Left - Related Data Allergies/Adverse Reactions: metformin Allergy (Verified 12/08/17 09:30) Diarrhea Past Medical History - General Information source: Patient - Social History Smoking Status: Never Smoker Chew tobacco use (# tins/day): No Frequency of alcohol use: None Drug Abuse: None Lives with: Skilled Nursing Family History: Hypertension Patient has suicidal ideation: No Patient has homicidal ideation: No - Past Medical History Cardiac Medical History: Reports: Hx Hypertension Denies: Hx Atrial Fibrillation, Hx Congestive Heart Failure, Hx Coronary Artery Disease, Hx Heart Attack - hx of chest pain x1, 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 Sterling, Hx Hypercholesterolemia, Hx Peripheral Vascular Disease, Hx Pulmonary Embolism, Hx Heart Murmur Pulmonary Medical History: Reports: Hx Asthma, Hx COPD Denies: Hx Bronchitis, Hx Pneumonia, Hx Respiratory Failure, Hx Sleep Apnea, Hx Tuberculosis Neurological Medical History: Denies: Hx Cerebrovascular Accident, Hx Seizures Endocrine Medical History: Denies: Hx Graves' Disease, Hx Hyperthyroidism, Hx Hypothyroidism Renal/ Medical History: Denies: Hx Benign Prostatic Hyperplasia - hx Prostate cancer, Hx End Stage Renal Disease, Hx Kidney Stones, Hx Peritoneal Dialysis Malignancy Medical History: Denies Hx Lung Cancer, Reports Hx Prostate Cancer GI Medical History: Reports: Hx Gastroesophageal Reflux Disease. Denies: Hx Crohn's Disease, Hx Hepatitis, Hx Hiatal Hernia, Hx Irritable Bowel, Hx Liver Failure, Hx Pancreatitis, Hx Ulcer Musculoskeletal Medical History: Reports Hx Arthritis, Denies Hx Fibromyalgia, Denies Hx Muscular Dystrophy Psychiatric Medical History: Traumatic Medical History: Reports: Hx Fractures - presently pelvic fracture Infectious Medical History: Denies: Hx Hepatitis Past Surgical History: Reports: Hx Cholecystectomy, Hx Orthopedic Surgery, Other - Radical prostatectomy. Denies: Hx Appendectomy, Hx Bowel Surgery, Hx Colostomy, Hx Coronary Artery Bypass Graft, Hx Gastric Bypass Surgery, Hx Herniorrhaphy, Hx Open Heart Surgery, Hx Pacemaker, Hx Tonsillectomy - Immunizations Hx Diphtheria, Pertussis, Tetanus Vaccination: Yes Review of Systems - Review of Systems Constitutional: denies: Fever, Malaise, Weakness EENT: See HPI, Eye discharge. denies: Eye pain, Throat swelling, Mouth pain Cardiovascular: denies: Chest pain, Palpitations, Heart racing Respiratory: denies: Cough, Hurts to breathe, Short of breath Skin: See HPI, Other - Redness and swelling around the left eye Neurological/Psychological: No symptoms reported Physical Exam - Vital signs Vitals: Temp Pulse Resp BP Pulse Ox 98.1 F 120 H 20 105/79 97 12/08/17 09:35 12/08/17 09:35 12/08/17 09:35 12/08/17 09:35 12/08/17 09:35 Interpretation: Normal - HEENT Head: Normocephalic, Atraumatic Eyes: Other - Patient with a left some conjunctival hemorrhage. There is some ecchymosis noted. There is some redness periorbitally around the left eye there is no pain with eye movement. Pupils: PERRL - Respiratory Respiratory status: No respiratory distress Chest status: Nontender Breath sounds: Normal Chest palpation: Normal - Cardiovascular Rhythm: Regular Heart sounds: Normal auscultation Murmur: No - Neurological Neuro grossly intact: Yes Cognition: Normal Orientation: AAOx4 [place] Coma Scale Eye Opening: Spontaneous [place] Coma Scale Verbal: Oriented [place] Coma Scale Motor: Obeys Commands [place] Coma Scale Total: 15 Speech: Normal Motor strength normal: LUE, RUE, LLE, RLE Sensory: Normal - Skin Skin Temperature: Warm Skin Moisture: Dry Skin Color: Normal, Other - Moderate amount of redness noted around the left eye Course - Re-evaluation Re-evalutation: 12/08/17 13:16 CT scan performed. No signs of retro-orbital cellulitis. There is some preseptal signs of cellulitis. Will start on antibiotics at this time. Recommend close follow-up. - Vital Signs Vital signs: Temp Pulse Resp BP Pulse Ox 98.1 F 120 H 20 105/79 97 12/08/17 09:35 12/08/17 09:35 12/08/17 09:35 12/08/17 09:35 12/08/17 09:35 Discharge - Discharge Clinical Impression: Periorbital cellulitis of left eye Condition: Good Disposition: HOME, SELF-CARE Instructions: Antibiotic Therapy ([facility]) Additional Instructions: Continue to take antibiotics as prescribed. If redness or swelling of the left eye is getting worse please return for repeat evaluation. Please follow-up with your regular doctor for repeat evaluation. You may continue to use the eyedrops as previously prescribed. Prescriptions: Amox Tr/Potassium Clavulanate [Augmentin 875-125 Tablet] 1 tab PO BID 10 Days # 20 tablet Referrals: TOMASA THIBODEAUX MD [Primary Care Provider] - Follow up as needed
--- NOTE | 2017-12-08 12:59 | RADIOLOGY REPORT (SQ) ---
EXAM DESCRIPTION: CT ORBIT/SELLA WITHOUT COMPLETED DATE/TIME: 12/08/2017 12:23 pm REASON FOR STUDY: swelling left eye COMPARISON: None. TECHNIQUE: Noncontrasted images through the orbits windowed for bone and soft tissue. Additional co nelly and sagittal reconstructed images reviewed. All images stored on PACS. All CT scanners at this facility use dose modulation, iterative reconstruction, and/or weight based d osing when appropriate to reduce radiation dose to as low as reasonably achievable (ALARA). [facility]: Dose Right [facility]: CareDose [facility]: Dose Right [facility]: Teradose 4D [facility]: [employer] RADIATION DOSE: CT Rad equipment meets quality standard of care and radiation dose reduction techniq ues were employed. CTDIvol: 30.4 mGy. DLP: 382 mGy-cm. mGy. LIMITATIONS: None. FINDINGS: FACIAL BONES: No fracture or bone lesion. ORBITS: Intact. No fracture. Symmetric intact globes and retroorbital soft tissues. There is asymm etric soft tissue thickening in the preseptal region anterior to the globe of the left eye consistent with preseptal cellulitis. PARANASAL SINUSES: There is extensive mucosal thickening within the frontal sinuses left greater than right. Extensive neck thickening in ethmoid sinuses left greater than right and within maxillary si nuses left greater than right. Stents mucosal thickening in sphenoid sinus seen. Nasal septal devia tion to the right SOFT TISSUES: No mass or edema. INFERIOR BRAIN: Limited view. No acute findings. OTHER: No other significant finding. IMPRESSION: 1. Changes of chronic pansinusitis. Findings consistent with preseptal cellulitis of t he left orbit. TECHNICAL DOCUMENTATION: JOB ID: [id number] Quality ID # [id number]: Final reports with documentation of one or more dose reduction techniques (e.g., Au tomated exposure control, adjustment of the mA and/or kV according to patient size, use of iterative reconstruction technique) 2010 [employer]- All Rights Reserved Reading location - IP/workstation name: [email or web address]
[2017-12-08] MEDS ORDERED: AMOXICILLIN TR/POT CLAVULANATE 500-125 MG TAB PO ONE (13:13)
[2017-12-08 17:59] VITALS: BP 120/59
== END 2017-12-08 14:35 | disposition home or self-care (01) ==
LOC: ER 09:29
DX: L03.213 Periorbital cellulitis (principal); H11.32 Conjunctival hemorrhage, left eye; J44.9 Chronic obstructive pulmonary disease, unspecified; I10 Essential (primary) hypertension; Z87.820 Personal history of traumatic brain injury; Z88.8 Allergy status to other drugs, medicaments and biological substances
CPT/HCPCS: 99285; 70480; A9270